=== PATIENT | male | born 1940 | race Caucasian/White ===

== ENCOUNTER 2018-04-19 06:58 | Day surgery (SDC) | payer MEDICARE, OTHER ==
[~2018-04-19 06:58] MED LIST: Bupivacaine 0.5%/EPINEPHrine 1:200,000 30 ML SDV ONE; Lactated Ringers 1,000 ML ONE; Midazolam 1 MG/ML 2 ML SDV ONE; Propofol 200 MG/20 ML SDV ONE; ceFAZolin 1 GM Vial ONE; fentaNYL 250 MCG/5 ML SDV ONE
[2018-04-19] MEDS ORDERED: Lactated Ringers 1,000 ML IV SCH (07:00)
[2018-04-19] MEDS ORDERED: Sodium Chloride 0.9% 5 ML Syringe FLUSH PRN (07:00)
[2018-04-19] MEDS ORDERED: Succinylcholine 200 MG/10 ML MDV IV ONE (07:54)
[2018-04-19] MEDS ORDERED: Rocuronium 50 MG/5 ML Vial IV ONE (07:54)
[2018-04-19] MEDS ORDERED: ePHEDrine 50 MG/ML SDV IV ONE (07:54)
[2018-04-19] MEDS ORDERED: Propofol 200 MG/20 ML SDV IV ONE (07:54)
[2018-04-19] MEDS ORDERED: Glycopyrrolate 0.2 MG/ML 5 ML MDV IV ONE (07:54)
[2018-04-19] MEDS ORDERED: Midazolam 1 MG/ML 2 ML SDV IV ONE (07:54)
[2018-04-19] MEDS ORDERED: ceFAZolin 1 GM Vial IV ONE (07:54)
[2018-04-19] MEDS ORDERED: fentaNYL 250 MCG/5 ML SDV IV ONE (07:54)
[2018-04-19] MEDS ORDERED: Neostigmine Methylsulfate 10 MG/10 ML MDV IV ONE (07:54)
[2018-04-19] MEDS ORDERED: Bupivacaine 0.5%/EPINEPHrine 1:200,000 30 ML SDV INFILT ONE ×2 (08:40)
[2018-04-19] MEDS ORDERED: ceFAZolin 1 GM Vial ONE (08:40)
[2018-04-19] MEDS ORDERED: Sodium Chloride 0.9% 20 ML SDV ONE (08:40)
[2018-04-19] MEDS ORDERED: Ondansetron 4 MG/2 ML SDV IVPUSH PRN (08:47)
[2018-04-19] MEDS ORDERED: Morphine 4 MG/ML Syringe IVPUSH PRN (08:47)
[2018-04-19] MEDS ORDERED: Morphine 2 MG/ML Syringe IVPUSH PRN (08:48)
[2018-04-19] MEDS ORDERED: fentaNYL 100 MCG/2 ML SDV IVPUSH PRN (08:48)
--- NOTE | 2018-04-19 09:04 | PCM.OPNOTE ---
- General Post-Op/Procedure Note Date of Surgery/Procedure: 04/19/18 Operative Procedure(s): Left inguinal herniorrhaphy and repair with Marlex mesh. Findings: Moderate left inguinal hernia mostly direct right ear was noted. No sac was observed. Pre Op Diagnosis: Moderate left inguinal hernia. Post-Op Diagnosis: As above. Condition: Good Free Text/Narrative:: INFORMED CONSENT: The patient is here today for elective left inguinal herniorrhaphy. The operative procedure, anesthesia and risks of both are completely explained to the patient. These include infection, pain, bleeding, recurrence, numbness and other unknown complications. The patient wished to proceed. The patient was kept in the supine position and the left inguinal area was thoroughly prepped and draped in the usual fashion. An incision was made over the left inguinal area, parallel to the inguinal ligament. The skin incision was deepened through the subcutaneous tissue, deep fascia and the external oblique was opened along the line of the skin incision. The cord structures were identified and kept out of harms way. We also identified the ilioinguinal nerve and the inguinal branch of the genitofemoral nerve. These two structures were kept out of harms way as well. We then dissected the medial portion of the cord and there was some inflamed fatty tissue but no distinct hernial sac. This tissue was removed. Palpation of the medial portion of the floor indicated a defect. A Marlex mesh was then cut down to size and placed to fortify the defect of the floor and the direct portion of the hernia. The mesh was attached to the conjoined tendon superiorly, Tobi's ligament medially and the reflected portion of the inguinal ligament inferiorly. The wound was irrigated, small bleeders were cauterized and the external oblique was closed over the cord structures using running 0 silk sutures. The subcutaneous tissue was closed with 0 Polysorb suture and the skin was closed using 4.0 Polysorb suture. A Sterile pressure dressing was applied, the patient tolerated the procedure well and there were no operative complications. Blood loss was negligible. Sponge, needle and instrument count was correct. The patient was transferred to the recovery room in excellent condition.
[2018-04-19 09:32] VITALS: BP 137/79
[2018-04-19] MEDS ORDERED: Lidocaine 2% Jelly 5 ML Tube ONE (15:19)
[2018-04-19] MEDS ORDERED: Lidocaine 2% Jelly 5 ML Tube MUCMEM ONE (15:20)
== END 2018-04-19 16:05 | disposition home or self-care (01) ==
LOC: KA.SDS 06:58
PROVIDERS: ATTEND Family Medicine
DX: K40.30 Unilateral inguinal hernia, with obstruction, without gangrene, not specified as recurrent (principal); I11.0 Hypertensive heart disease with heart failure; I50.9 Heart failure, unspecified; E78.2 Mixed hyperlipidemia; K21.9 Gastro-esophageal reflux disease without esophagitis; Z79.82 Long term (current) use of aspirin; Z79.899 Other long term (current) drug therapy; Z88.2 Allergy status to sulfonamides; Z88.4 Allergy status to anesthetic agent
CPT/HCPCS: 00830; 51702; 51798; C1781; J0330; J0690; J2250; J2405; J2704; J2710; J3010; J3490; J7120

== ENCOUNTER 2021-09-24 14:35 | Emergency (ER) | payer MEDICARE, OTHER ==
--- NOTE | 2021-09-24 15:07 | EDM.PDOC ---
ED HPI GENERAL MEDICAL PROBLEM - General Chief Complaint: General Stated Complaint: RT SIDE NUMBNESS/HIGH B/P Time Seen by Provider: 09/24/21 14:46 Source of Information: Reports: Patient, Provider ([facility] at [facility]), Significant Other History Limitations: Reports: No Limitations - History of Present Illness INITIAL COMMENTS - FREE TEXT/NARRATIVE: Patient presents from [facility] for evaluation of possible stroke. Patient says he had been out in the yard and at noon went in for lunch. He sat down to eat and his right arm wouldn't work right; he also couldn't chew normally. He felt off balance also. He says his arm didn't feel weak, just couldn't control it normally. His was with him and asked if she should call ambulance but he didn't want to at first. She says she didn't notice any facial droop or slurred speech. He says he never was confused or disoriented. At about 1300 he developed a headache, the other symptoms continued so they eventually went to the [facility]. He now says the only symptom remaining is the headache. Everything else is completely resolved. He denies any pain in chest, abdomen, arms, neck. In 2016 he had what was figured to be a TIA. At that time he did have facial droop and slurred speech. He spent a couple days at [facility]. He isn't taking anything [employer] for it. Headache Pain Score (Numeric/FACES): 5 - Related Data Allergies Allergy/AdvReac Type Severity Reaction Status Date / Time benzocaine [From Solarcaine] Allergy Rash Verified 09/24/21 14:45 Sulfa (Sulfonamide Allergy Swelling Verified 09/24/21 14:45 Antibiotics) triclosan [From Solarcaine] Allergy Rash Verified 09/24/21 14:45 Home Meds: Home Meds Calcium Carbonate/Vitamin D3 [Calcium 600 + Vit D 200] 1 tab PO DAILY 12/22/15 [History] Fluticasone Propionate [Flonase] 1 spray NASBOTH DAILY 12/22/15 [History] Fluticasone/Salmeterol [Advair Diskus 250-50] 1 puff INH BID 12/22/15 [History] Montelukast [Singulair] 10 mg PO BEDTIME 12/22/15 [History] Multivitamin [Multi-Vitamin Daily] 1 tab PO DAILY 12/22/15 [History] Nitroglycerin [Nitrostat] 0.4 mg SL ASDIRECTED PRN 12/22/15 [History] Omeprazole 20 mg PO DAILY 12/22/15 [History] polyethylene glycoL 3350 [Miralax] 17 gm PO DAILY #30 powd.pack 12/25/15 [Rx] Cholecalciferol (Vitamin D3) [Vitamin D3] 1,000 units PO DAILY 10/22/16 [History] Glucosam/Chond/Collagen/Hyalur [Glucosamine Chondroitin] 1 tab PO BID 10/22/16 [History] Rosuvastatin [Crestor] 10 mg PO DAILY 04/18/18 [History] Acetaminophen [Arthritis Pain Relief] 650 mg PO BID 09/24/21 [History] Albuterol [Ventolin HFA] 1 - 2 puff INH Q4H PRN 09/24/21 [History] Aspirin [Ecotrin EC] 81 mg PO DAILY 09/24/21 [History] Atenolol [Tenormin] 12.5 mg PO Q48H 09/24/21 [History] Diclofenac Sodium [Voltaren 1% Gel] 1 applic TOP BID PRN 09/24/21 [History] Finasteride 5 mg PO DAILY 09/24/21 [History] Losartan [Cozaar] 50 mg PO DAILY 09/24/21 [History] Tamsulosin [Flomax] 0.4 mg PO DAILY 09/24/21 [History] Past Medical History HEENT History: Reports: Impaired Vision Cardiovascular History: Reports: Aneurysm, Blood Clots/VTE/DVT, Bypass, Hypertension, CO Respiratory History: Reports: Pneumonia, Recurrent Other Respiratory History: seasonal allergies. sinus surgeries Gastrointestinal History: Reports: GERD Genitourinary History: Reports: Other (See Below) Other Genitourinary History: turp Musculoskeletal History: Reports: Arthritis Neurological History: Reports: TIA Psychiatric History: Reports: None Endocrine/Metabolic History: Reports: None Hematologic History: Reports: Anemia Immunologic History: Reports: None Oncologic (Cancer) History: Reports: None Dermatologic History: Reports: None - Infectious Disease History Infectious Disease History: Reports: Chicken Pox, Measles - Past Surgical History Head Surgeries/Procedures: Reports: None HEENT Surgical History: Reports: Naso-Sinus Surgery Cardiovascular Surgical History: Reports: Aneurysm, Coronary Artery Bypass, Vascular Surgery GI Surgical History: Reports: Colonoscopy Endocrine Surgical History: Reports: None Neurological Surgical History: Reports: None Musculoskeletal Surgical History: Reports: Arthroscopic Knee Oncologic Surgical History: Reports: None Dermatological Surgical History: Reports: None Social & Family History - Family History Family Medical History: No Pertinent Family History Cardiac: Reports: Hypertension Neurological: Reports: CVA - Caffeine Use Caffeine Use: Reports: Soda, Tea ED ROS GENERAL - Review of Systems Review Of Systems: See Below Constitutional: Denies: Fever, Chills, Malaise, Weakness HEENT: Denies: Ear Pain, Throat Pain, Vision Change Respiratory: Denies: Shortness of Breath, Cough Cardiovascular: Denies: Chest Pain, Lightheadedness, Syncope GI/Abdominal: Denies: Abdominal Pain, Diarrhea, Vomiting : Denies: Dysuria, Flank Pain Musculoskeletal: Denies: Neck Pain, Shoulder Pain, Arm Pain, Back Pain Skin: Denies: Cyanosis, Jaundice, Mottled, Pallor, Diaphoresis Neurological: Reports: Headache. Denies: Confusion, Dizziness, Numbness, Seizure, Syncope, Tingling, Tremors, Trouble Speaking, Difficulty Walking, Weakness Psychiatric: Denies: Agitation, Anxiety, Confusion ED EXAM, GENERAL - Physical Exam Exam: See Below Exam Limited By: No Limitations General Appearance: Alert, WD/WN, No Apparent Distress Eye Exam: Bilateral Eye: EOMI, Normal Inspection (full visual gleason bilat), PERRL Ears: Normal External Exam, Normal Canal, Hearing Grossly Normal, Normal TMs Nose: Normal Inspection, No Blood Throat/Mouth: Normal Inspection, Normal Lips, Normal Voice, No Airway Compromise Head: Atraumatic, Normocephalic Neck: Normal Inspection, Full Range of Motion Respiratory/Chest: No Respiratory Distress, Lungs Clear, Normal Breath Sounds, No Accessory Muscle Use Cardiovascular: Regular Rate, Rhythm, No Murmur GI/Abdominal: Soft, Non-Tender, No Organomegaly, No Distention Back Exam: Normal Inspection, Full Range of Motion. No: CVA Tenderness (L), CVA Tenderness (R) Extremities: Normal Inspection, Normal Range of Motion Neurological: Alert, Oriented, CN II-XII Intact, Normal Cognition, No Motor/Sensory Deficits, Other (normal Romberg) Psychiatric: Normal Affect, Normal Mood Skin Exam: Warm, Dry, Intact, Normal Color, No Rash Course - Vital Signs Last Recorded V/S: Last Vital Signs Temp 97.2 F 09/24/21 14:44 Pulse 67 09/24/21 16:06 Resp 20 09/24/21 15:16 BP 188/96 H 09/24/21 16:06 Pulse Ox 97 09/24/21 16:02 - Orders/Labs/Meds Orders: Active Orders 24 hr Category Date Time Status EKG 12 Lead [EK] Stat Ther 09/24/21 15:02 Ordered Labs: Laboratory Tests 09/24/21 09/24/21 Range/Units 15:20 15:20 WBC 6.24 (5.00-10.00) 10^3/uL RBC 4.59 (4.50-6.00) 10^6/uL Hgb 14.4 (13.0-17.0) g/dL Hct 42.0 (40.0-52.0) % MCV 91.5 D (82.0-92.0) fL MCH 31.4 H (27.0-31.0) pg MCHC 34.3 (32.0-36.0) g/dL RDW 12.9 (11.5-14.5) % Plt Count 173 (150-400) 10^3/uL MPV 8.6 (7.4-10.4) fL Immature Gran % (Auto) 0.3 (0.0-5.0) % Neut % (Auto) 63.2 (50.0-70.0) % Lymph % (Auto) 15.9 L (20.0-40.0) % Hayes % (Auto) 14.7 H (2.0-8.0) % Eos % (Auto) 5.3 H (1.0-3.0) % Baso % (Auto) 0.6 (0.0-1.0) % Neut # (Auto) 3.94 (2.50-7.00) 10^3/uL Lymph # (Auto) 0.99 L (1.00-4.00) 10^3/uL Hayes # (Auto) 0.92 H (0.10-0.80) 10^3/uL Eos # (Auto) 0.33 H (0.10-0.30) 10^3/uL Baso # (Auto) 0.04 (0.00-0.10) 10^3/uL Immature Gran # (Auto) 0.02 (0.00-0.50) 10^3/uL Sodium 133 L (136-145) mmol/L Potassium 4.4 (3.5-5.1) mmol/L Chloride 97 L (98-107) mmol/L Carbon Dioxide 27.2 (21.0-32.0) mmol/L Anion Gap 13.2 (5-15) mmol/L BUN 22 H (7-18) mg/dL Creatinine 1.05 (0.51-1.17) mg/dL Est Cr Clr Drug Dosing 62.61 mL/min Estimated GFR (MDRD) > 60 mL/min Glucose 102 (70-140) mg/dL Calcium 9.0 (8.7-10.3) mg/dL Total Bilirubin 0.3 (0.2-1.0) mg/dL AST 21 (15-37) U/L ALT 28 (14-63) U/L Alkaline Phosphatase 45 L (46-116) U/L Total Protein 6.5 (6.4-8.2) g/dL Albumin 3.27 L (3.40-5.00) g/dL Meds: Medications Discontinued Medications Generic Name Dose Route Start Last Admin Trade Name Korina PRN Reason Stop Dose Admin Acetaminophen 1,000 mg 09/24/21 15:47 09/24/21 15:51 Acetaminophen 500 Mg Tab PO 09/24/21 15:48 1,000 mg ONETIME ONE Administration Ketorolac Tromethamine 30 mg 09/24/21 15:46 09/24/21 15:52 Ketorolac 30 Mg/Ml Sdv IM 09/24/21 15:47 30 mg ONETIME ONE Administration Metoprolol Tartrate 50 mg 09/24/21 16:03 09/24/21 16:06 Metoprolol Tartrate 50 Mg Tab PO 09/24/21 16:04 50 mg ONETIME ONE Administration - Re-Assessments/Exams Free Text/Narrative Re-Assessment/Exam: 09/24/21 15:[address] shows no acute intracranial findings. Patient rates headache at 5/10 and would like something for it. He can take NSAIDS he says. He feels fine other than the headache. Giving Toradol and Tylenol now. 11/04/21 16:03 CMP okay. BP has fluctuated a bit but still running higher than his normal. He did take his Atenolol and Losartan this morning. Will give a dose of Metoprolol 50 mg now. Discussed findings and recommendations; including that this was possibly another TIA. He continues to feel well. He would like to go home rather than stay for observation. I feel that is reasonable; he is scheduled to see his staff registered nurse tomorrow in [place] so will see his PCP on Tuesday. If any worsening or problems will follow up sooner in clinic or ER. 09/24/21 16:21 Patient discharged to home in stable condition. Departure - Departure Time of Disposition: 16:20 Disposition: Home, Self-Care 01 Condition: Good Clinical Impression: TIA (transient ischemic attack), Headache above the eye region - Discharge Information Instructions: Transient Ischemic Attack, [id number] Forms: ED Department Discharge Additional Instructions: Drink 8 cups of water daily. Continue your regular medications as directed. Follow up with your PCP on Tuesday for recheck of this and your blood pressure. If any worsening, go to Clinic or ER as needed. Sepsis Event Note (ED) - Evaluation Sepsis Screening Result: No Definite Risk - Focused Exam Vital Signs: Vital Signs Temp Pulse Pulse Resp BP BP Pulse Ox 09/24/21 16:06 67 188/96 H 09/24/21 16:02 67 188/96 H 97 09/24/21 15:16 61 20 169/83 H 97 09/24/21 15:10 60 20 180/91 H 98 09/24/21 14:45 61 161/85 H 09/24/21 14:44 97.2 F 61 20 184/91 H 97 - My Orders Last 24 Hours: My Active Orders 09/24/21 15:02 EKG 12 Lead [EK] Stat - Assessment/Plan Last 24 Hours: My Active Orders 09/24/21 15:02 EKG 12 Lead [EK] Stat
--- NOTE | 2021-09-24 15:28 | CT ---
[id number] CT/CT Head Stroke Protocol EXAM: CT Head Stroke Protocol CLINICAL DATA: POSSIBLE TIA. HEADACHE, RIGHT ARM WEAKNESS, CANNOT COMPARISON STUDY: None FINDINGS: No intracranial hemorrhage, extra-axial fluid collection, mass, or acute ischemia. Generalized parenchymal atrophy with scattered areas of nonspecific white matter disease, commonly seen as sequela of chronic microvascular ischemia. Soft tissues are unremarkable. Postsurgical changes of the sinuses. Findings consistent with moderate sinusitis. IMPRESSION: No acute intracranial findings. Mikel Howe DO 09/24/21 1526 Thank you for allowing us to participate in the care of your patient.
[2021-09-24 15:44] LABS: ANION GAP 13.2 mmol/L (5-15); CHLORIDE,CL 97 mmol/L (98-107); SODIUM,NA 133 mmol/L (136-145)
[2021-09-24] MEDS ORDERED: Ketorolac 30 MG/ML SDV IM ONE (15:46)
[2021-09-24] MEDS ORDERED: Acetaminophen 500 MG Tab PO ONE (15:47)
[2021-09-24 16:03] VITALS: BP 188/96; PULSE 67
[2021-09-24] MEDS ORDERED: Metoprolol Tartrate 50 MG Tab PO ONE (16:03)
== END 2021-09-24 16:25 | disposition home or self-care (01) ==
LOC: KA.ED 14:35
DX: G45.9 Transient cerebral ischemic attack, unspecified (principal); I10 Essential (primary) hypertension; I25.2 Old myocardial infarction; K21.9 Gastro-esophageal reflux disease without esophagitis; Z79.899 Other long term (current) drug therapy; Z95.1 Presence of aortocoronary bypass graft; Z88.2 Allergy status to sulfonamides; Z88.8 Allergy status to other drugs, medicaments and biological substances; Z79.82 Long term (current) use of aspirin
CPT/HCPCS: 36415; 70450; 80053; 85025; 93005; 93010; 96372; 99284; 99285-25; A9270-GY; J1885

== ENCOUNTER 2021-09-27 15:07 | Observation (INO) | payer MEDICARE, OTHER ==
[2021-09-27 15:41] LABS: ANION GAP 14.5 mmol/L (5-15); CHLORIDE,CL 96 mmol/L (98-107); SODIUM,NA 133 mmol/L (136-145)
--- NOTE | 2021-09-27 15:50 | CT ---
[id number] CT/CT Head Stroke Protocol EXAM: CT Head Stroke Protocol CLINICAL DATA: TIA, NEURO COMPLAINT, WORD FINDING. COMPARISON STUDY: None FINDINGS: No intracranial hemorrhage, extra-axial fluid collection, mass, or acute ischemia. Generalized parenchymal atrophy with scattered areas of nonspecific white matter disease, commonly seen as sequela of chronic microvascular ischemia. Soft tissues are unremarkable. Postsurgical changes of the paranasal sinuses. The mastoid air cells are well aerated and clear. IMPRESSION: No acute intracranial findings. Mikel Howe DO 09/27/21 1549 Thank you for allowing us to participate in the care of your patient.
--- NOTE | 2021-09-27 16:42 | EDM.PDOC ---
ED HPI GENERAL MEDICAL PROBLEM - General Chief Complaint: Neurological Problem Stated Complaint: STROKE ALERT Time Seen by Provider: 09/27/21 15:09 Source of Information: Reports: Patient, EMS, Family () History Limitations: Reports: Altered Mental Status - History of Present Illness INITIAL COMMENTS - FREE TEXT/NARRATIVE: 81-year-old male presents to emergency room for acute stroke code. Patient onset of symptoms occurred about an hour prior to his arrival. He was having difficulty with speech and some extremity weakness noted by family. EMS seen evaluated patient and noticed some mild weakness on his right side.. He was having some difficulty with the word finding and speech. Upon arrival his symptoms had been transient and seemed to have improved. He was still having a little bit of difficulty answering questions appropriately but was alert and oriented x3 in no acute distress. His motor strength had resolved. There is neuro acute neurologic findings other than difficulty with word speech. Patient was stable condition was sent to CT scan of his head. Onset: Today Onset Date: 09/27/21 Onset Time: 14:00 Duration: Minutes:, Resolved Prior to Arrival, Other Quality: Reports: Ache (headache) Severity: Mild Improves with: Reports: Rest Worsens with: Reports: None Associated Symptoms: Reports: Confusion, Other (Word finding) Headache Pain Score (Numeric/FACES): 5 - Related Data Allergies Allergy/AdvReac Type Severity Reaction Status Date / Time benzocaine [From Solarcaine] Allergy Rash Verified 09/27/21 15:21 Sulfa (Sulfonamide Allergy Swelling Verified 09/27/21 15:21 Antibiotics) triclosan [From Solarcaine] Allergy Rash Verified 09/27/21 15:21 Home Meds: Home Meds Calcium Carbonate/Vitamin D3 [Calcium 600 + Vit D 200] 1 tab PO BID 12/22/15 [History] Fluticasone Propionate [Flonase] 1 spray NASBOTH BID 12/22/15 [History] Fluticasone/Salmeterol [Advair Diskus 250-50] 1 puff INH BID 12/22/15 [History] Montelukast [Singulair] 10 mg PO BEDTIME 12/22/15 [History] Multivitamin [Multi-Vitamin Daily] 1 tab PO DAILY 12/22/15 [History] Nitroglycerin [Nitrostat] 0.4 mg SL ASDIRECTED PRN 12/22/15 [History] Omeprazole 40 mg PO DAILY 12/22/15 [History] polyethylene glycoL 3350 [Miralax] 17 gm PO DAILY #30 powd.pack 12/25/15 [Rx] Cholecalciferol (Vitamin D3) [Vitamin D3] 2,000 units PO DAILY 10/22/16 [History] Glucosam/Chond/Collagen/Hyalur [Glucosamine Chondroitin] 1 tab PO BID 10/22/16 [History] Rosuvastatin [Crestor] 20 mg PO DAILY 04/18/18 [History] Acetaminophen [Arthritis Pain Relief] 650 mg PO BID 09/24/21 [History] Albuterol [Ventolin HFA] 1 - 2 puff INH Q4H PRN 09/24/21 [History] Aspirin [Ecotrin EC] 81 mg PO DAILY 09/24/21 [History] Atenolol [Tenormin] 12.5 mg PO Q48H 09/24/21 [History] Diclofenac Sodium [Voltaren 1% Gel] 1 applic TOP BID PRN 09/24/21 [History] Finasteride 5 mg PO DAILY 09/24/21 [History] Losartan [Cozaar] 50 mg PO DAILY 09/24/21 [History] Tamsulosin [Flomax] 0.4 mg PO DAILY 09/24/21 [History] Past Medical History HEENT History: Reports: Impaired Vision Cardiovascular History: Reports: Aneurysm, Blood Clots/VTE/DVT, Bypass, Hypertension, [place] Respiratory History: Reports: Pneumonia, Recurrent Other Respiratory History: seasonal allergies. sinus surgeries Gastrointestinal History: Reports: GERD Genitourinary History: Reports: Other (See Below) Other Genitourinary History: turp Musculoskeletal History: Reports: Arthritis Neurological History: Reports: TIA Psychiatric History: Reports: None Endocrine/Metabolic History: Reports: None Hematologic History: Reports: Anemia Immunologic History: Reports: None Oncologic (Cancer) History: Reports: None Dermatologic History: Reports: None - Infectious Disease History Infectious Disease History: Reports: Chicken Pox, Measles - Past Surgical History Head Surgeries/Procedures: Reports: None HEENT Surgical History: Reports: Naso-Sinus Surgery Cardiovascular Surgical History: Reports: Aneurysm, Coronary Artery Bypass, Vascular Surgery Respiratory Surgical History: Reports: Other (See Below) Other Respiratory Surgeries/Procedures: sinus GI Surgical History: Reports: Colonoscopy Endocrine Surgical History: Reports: None Neurological Surgical History: Reports: None Musculoskeletal Surgical History: Reports: Arthroscopic Knee Other Musculoskeletal Surgeries/Procedures:: arthritis of hands Oncologic Surgical History: Reports: None Dermatological Surgical History: Reports: None Social & Family History - Family History Family Medical History: No Pertinent Family History Cardiac: Reports: Hypertension Neurological: Reports: CVA - Tobacco Use Tobacco Use Status *Q: Never Tobacco User - Caffeine Use Caffeine Use: Reports: Tea - Recreational Drug Use Recreational Drug Use: No ED ROS GENERAL - Review of Systems Review Of Systems: See Below Constitutional: Reports: No Symptoms HEENT: Reports: No Symptoms Respiratory: Reports: No Symptoms Cardiovascular: Reports: Blood Pressure Problem. Denies: Chest Pain, Dyspnea on Exertion, Lightheadedness, Syncope Endocrine: Reports: No Symptoms GI/Abdominal: Reports: No Symptoms : Reports: No Symptoms Musculoskeletal: Reports: No Symptoms Skin: Reports: No Symptoms Neurological: Reports: Confusion, Headache, Trouble Speaking (Difficulty with word finding). Denies: Numbness, Paresthesia, Pre-Existing Deficit, Difficulty Walking, Weakness, Change in Speech Psychiatric: Reports: No Symptoms Hematologic/Lymphatic: Reports: No Symptoms Immunologic: Reports: No Symptoms ED EXAM, NEURO - Physical Exam Exam: See Below Exam Limited By: No Limitations General Appearance: Alert, WD/WN, No Apparent Distress Eye Exam: Bilateral Eye: EOMI, PERRL Ears: Normal External Exam, Hearing Grossly Normal Nose: Normal Inspection Throat/Mouth: Normal Inspection, Normal Lips, Normal Voice, No Airway Compromise, Other (No evidence of droopy face) Head Exam: Atraumatic, Normocephalic Neck: Normal Inspection, Supple, Non-Tender, Full Range of Motion. No: Carotid Bruit Respiratory/Chest: No Respiratory Distress, Lungs Clear, Normal Breath Sounds, No Accessory Muscle Use, Chest Non-Tender Cardiovascular: Normal Peripheral Pulses, Regular Rate, Rhythm, No JVD, No Murmur, Other (Healed incision over his him consistent with prior open heart surgery) GI/Abdominal: Normal Bowel Sounds, Soft, Non-Tender Neurological: Alert, Normal Mood/Affect, CN II-XII Intact, Normal Plantar Flexion, No Motor/Sensory Deficits, Oriented x 3, Other (Clonus, Denise's get if) Back Exam: Normal Inspection Extremities: Normal Inspection, Normal Range of Motion, No Pedal Edema, Normal Capillary Refill Psychiatric: Normal Affect, Normal Mood Skin Exam: Warm, Dry, Intact, Normal Color, No Rash Course - Vital Signs Last Recorded V/S: Last Vital Signs Temp 97.6 F 09/27/21 15:22 Pulse 76 09/27/21 15:22 Resp 20 09/27/21 15:22 BP 199/116 H 09/27/21 15:22 Pulse Ox 95 09/27/21 15:22 - Orders/Labs/Meds Orders: Active Orders 24 hr Category Date Time Status EKG 12 Lead [EK] Stat Ther 09/27/21 15:20 Ordered Labs: Laboratory Tests 09/27/21 09/27/21 Range/Units 13:03 13:03 WBC 6.32 (5.00-10.00) 10^3/uL RBC 4.64 (4.50-6.00) 10^6/uL Hgb 14.7 (13.0-17.0) g/dL Hct 41.6 (40.0-52.0) % MCV 89.7 (82.0-92.0) fL MCH 31.7 H (27.0-31.0) pg MCHC 35.3 (32.0-36.0) g/dL RDW 12.7 (11.5-14.5) % Plt Count 168 (150-400) 10^3/uL MPV 8.8 (7.4-10.4) fL Immature Gran % (Auto) 0.3 (0.0-5.0) % Neut % (Auto) 47.7 L (50.0-70.0) % Lymph % (Auto) 28.6 (20.0-40.0) % [place] % (Auto) 16.1 H (2.0-8.0) % Eos % (Auto) 6.5 H (1.0-3.0) % Baso % (Auto) 0.8 (0.0-1.0) % Neut # (Auto) 3.01 (2.50-7.00) 10^3/uL Lymph # (Auto) 1.81 (1.00-4.00) 10^3/uL [place] # (Auto) 1.02 H (0.10-0.80) 10^3/uL Eos # (Auto) 0.41 H (0.10-0.30) 10^3/uL Baso # (Auto) 0.05 (0.00-0.10) 10^3/uL Immature Gran # (Auto) 0.02 (0.00-0.50) 10^3/uL Sodium 133 L (136-145) mmol/L Potassium 4.2 (3.5-5.1) mmol/L Chloride 96 L (98-107) mmol/L Carbon Dioxide 26.7 (21.0-32.0) mmol/L Anion Gap 14.5 (5-15) mmol/L BUN 18 (7-18) mg/dL Creatinine 1.17 (0.51-1.17) mg/dL Est Cr Clr Drug Dosing 56.19 mL/min Estimated GFR (MDRD) > 60 mL/min Glucose 125 (70-140) mg/dL Calcium 9.1 (8.7-10.3) mg/dL Troponin I High Sens 11.100 (0-76.000) pg/mL - Radiology Interpretation Free Text/Narrative:: CT head stroke protocol Clinical data: TIA, neuro complaint, word finding. Findings: No intracranial hemorrhage, extra-axial fluid collection, mass, or acute ischemia. Generalized paronychial atrophy with scattered areas of nonspecific white matter disease, commonly seen as a sequela of chronic microvascular ischemia. Tissues are unremarkable. Postsurgical changes of the parent nasal sinuses. The mastoid air cells are well aerated and clear. Impression: No acute intracranial findings - Re-Assessments/Exams Free Text/Narrative Re-Assessment/Exam: 09/27/21 16:49 Patient's neurological symptoms seem to have resolved at the time of arrival. He was still having some mild difficulty on admission with word finding and answering sentences in full. This since has improved during his time in the ER. Discussed with the patient that he was seen in the emergency room on and once again today with similar neurologic symptoms suggesting of a TIA. Our concern is that this is leading up to a stroke. With the second episode of this in the emergency room I discussed keeping him overnight for observation. He is going to need further work-up upon discharge likely with a brain MRI. Departure - Departure Time of Disposition: 16:51 Disposition: Refer to Observation Condition: Good Clinical Impression: Neurological deficit, transient, TIA (transient ischemic attack) - Discharge Information Sepsis Event Note (ED) - Evaluation Sepsis Screening Result: No Definite Risk - Focused Exam Vital Signs: Vital Signs Temp Pulse Resp BP Pulse Ox 09/27/21 15:22 97.6 F 76 20 199/116 H 95 - My Orders Last 24 Hours: My Active Orders 09/27/21 15:20 EKG 12 Lead [EK] Stat - Assessment/Plan Last 24 Hours: My Active Orders 09/27/21 15:20 EKG 12 Lead [EK] Stat Assessment:: Neurological complaints, logic deficit transient Probable TIAs, recurrent Plan: Patient's neurological symptoms seem to have resolved at the time of arrival. He was still having some mild difficulty on admission with word finding and answering sentences in full. This since has improved during his time in the ER. Discussed with the patient that he was seen in the emergency room on and once again today with similar neurologic symptoms suggesting of a TIA. Our concern is that this is leading up to a stroke. With the second episode of this in the emergency room I discussed keeping him overnight for observation. He is going to need further work-up upon discharge likely with a brain MRI.
--- NOTE | 2021-09-27 18:26 | PCM.HP.2 ---
H&P History of Present Illness - General Date of Service: 09/27/21 Admit Problem/Dx: Admission Diagnosis/Problem Admission Diagnosis/Problem TIA, Transient ischemic attack Headache Pain Score (Numeric/FACES): 5 - Related Data Allergies/Adverse Reactions: Allergies Allergy/AdvReac Type Severity Reaction Status Date / Time benzocaine [From Solarcaine] Allergy Rash Verified 09/27/21 15:21 Sulfa (Sulfonamide Allergy Swelling Verified 09/27/21 15:21 Antibiotics) triclosan [From Solarcaine] Allergy Rash Verified 09/27/21 15:21 Home Medications: Home Meds Calcium Carbonate/Vitamin D3 [Calcium 600 + Vit D 200] 1 tab PO BID 12/22/15 [Hi story] Fluticasone Propionate [Flonase] 1 spray NASBOTH BID 12/22/15 [History] Fluticasone/Salmeterol [Advair Diskus 250-50] 1 puff INH BID 12/22/15 [History] Montelukast [Singulair] 10 mg PO BEDTIME 12/22/15 [History] Multivitamin [Multi-Vitamin Daily] 1 tab PO DAILY 12/22/15 [History] Nitroglycerin [Nitrostat] 0.4 mg SL ASDIRECTED PRN 12/22/15 [History] Omeprazole 40 mg PO DAILY 12/22/15 [History] polyethylene glycoL 3350 [Miralax] 17 gm PO DAILY #30 powd.pack 12/25/15 [Rx] Cholecalciferol (Vitamin D3) [Vitamin D3] 2,000 units PO DAILY 10/22/16 [History] Glucosam/Chond/Collagen/Hyalur [Glucosamine Chondroitin] 1 tab PO BID 10/22/16 [History] Rosuvastatin [Crestor] 20 mg PO DAILY 04/18/18 [History] Acetaminophen [Arthritis Pain Relief] 650 mg PO BID 09/24/21 [History] Albuterol [Ventolin HFA] 1 - 2 puff INH Q4H PRN 09/24/21 [History] Aspirin [Ecotrin EC] 81 mg PO DAILY 09/24/21 [History] Atenolol [Tenormin] 12.5 mg PO Q48H 09/24/21 [History] Diclofenac Sodium [Voltaren 1% Gel] 1 applic TOP BID PRN 09/24/21 [History] Finasteride 5 mg PO DAILY 09/24/21 [History] Losartan [Cozaar] 50 mg PO DAILY 09/24/21 [History] Tamsulosin [Flomax] 0.4 mg PO DAILY 09/24/21 [History] Prednisolone Acetate/Pf [Prednisolone Acet 1% Eye Drop] 1 drop EYERT BID 09/27/21 [History] Past Medical History HEENT History: Reports: Impaired Vision Cardiovascular History: Reports: Aneurysm, Blood Clots/VTE/DVT, Bypass, Hypertension, [place] Respiratory History: Reports: Pneumonia, Recurrent Other Respiratory History: seasonal allergies. sinus surgeries Gastrointestinal History: Reports: GERD Genitourinary History: Reports: Other (See Below) Other Genitourinary History: turp Musculoskeletal History: Reports: Arthritis Neurological History: Reports: TIA Psychiatric History: Reports: None Endocrine/Metabolic History: Reports: None Hematologic History: Reports: Anemia Immunologic History: Reports: None Oncologic (Cancer) History: Reports: None Dermatologic History: Reports: None - Infectious Disease History Infectious Disease History: Reports: Chicken Pox, Measles - Past Surgical History Head Surgeries/Procedures: Reports: None HEENT Surgical History: Reports: Naso-Sinus Surgery Cardiovascular Surgical History: Reports: Aneurysm, Coronary Artery Bypass, Vascular Surgery Respiratory Surgical History: Reports: Other (See Below) Other Respiratory Surgeries/Procedures: sinus GI Surgical History: Reports: Colonoscopy Endocrine Surgical History: Reports: None Neurological Surgical History: Reports: None Musculoskeletal Surgical History: Reports: Arthroscopic Knee Other Musculoskeletal Surgeries/Procedures:: arthritis of hands Oncologic Surgical History: Reports: None Dermatological Surgical History: Reports: None Social & Family History - Family History Family Medical History: No Pertinent Family History Cardiac: Reports: Hypertension Neurological: Reports: CVA - Tobacco Use Tobacco Use Status *Q: Never Tobacco User - Caffeine Use Caffeine Use: Reports: Tea - Recreational Drug Use Recreational Drug Use: No H&P Review of Systems - Review of Systems: Review Of Systems: See Below General: Reports: No Symptoms HEENT: Reports: Headaches (now resolved, headache with onset of neuro symptoms) Pulmonary: Reports: Cough Cardiovascular: Reports: No Symptoms. Denies: Lightheadedness, Syncope Gastrointestinal: Reports: No Symptoms Genitourinary: Reports: No Symptoms Musculoskeletal: Reports: No Symptoms Skin: Reports: No Symptoms Psychiatric: Reports: No Symptoms Neurological: Reports: Weakness (Now resolved), Change in Speech (Now resolved) Hematologic/Lymphatic: Reports: No Symptoms Immunologic: Reports: No Symptoms Exam - Exam Exam: See Below - Vital Signs Vital Signs: Last Vital Signs Temp 97.6 F 09/27/21 16:16 Pulse 59 L 09/27/21 16:30 Resp 16 09/27/21 16:30 BP 169/79 H 09/27/21 16:30 Pulse Ox 94 L 09/27/21 16:30 Weight: 185 lb - Exam General: Alert, Oriented, Cooperative. No: Mild Distress HEENT: Conjunctiva Clear, Mucosa Moist & [place] Neck: Supple, Trachea Midline. No: Carotid Bruit Lungs: Decreased Breath Sounds. No: Crackles, Rales, Rhonchi, Wheezing Cardiovascular: Regular Rate, Regular Rhythm. No: Systolic Murmur GI/Abdominal Exam: Normal Bowel Sounds, Soft, Non-Tender, No Distention (Male) Exam: Deferred Rectal (Males) Exam: Deferred Back Exam: Normal Inspection, Full Range of Motion Extremities: Normal Inspection, Normal Range of Motion, Non-Tender, No Pedal Edema, Normal Capillary Refill Peripheral Pulses: 2+: Dorsalis Pedis (L), Dorsalis Pedis (R) Skin: Warm, Dry, Intact Neurological: Cranial Nerves Intact, Normal Speech, Normal Tone. No: Focal Deficit Neuro Extensive - Mental Status: Alert, Oriented x3, Normal Mood/Affect, Normal Cognition, Memory Intact Neuro Extensive - Motor, Sensory, Reflexes: CN II-XII Intact. No: Tongue Deviation (L), Dysarthria, Receptive Aphasia, Pronator Drift (R), Abnormal Finger to Nose, Abnormal Heel to [place] Psychiatric: Alert, Normal Affect, Normal Mood - Patient Data Lab Results Last 24 hrs: Laboratory Results - last 24 hr 09/27/21 09/27/21 09/27/21 Range/Units 13:03 13:03 16:30 WBC 6.32 (5.00-10.00) 10^3/uL RBC 4.64 (4.50-6.00) 10^6/uL Hgb 14.7 (13.0-17.0) g/dL Hct 41.6 (40.0-52.0) % MCV 89.7 (82.0-92.0) fL MCH 31.7 H (27.0-31.0) pg MCHC 35.3 (32.0-36.0) g/dL RDW 12.7 (11.5-14.5) % Plt Count 168 (150-400) 10^3/uL MPV 8.8 (7.4-10.4) fL Immature Gran % (Auto) 0.3 (0.0-5.0) % Neut % (Auto) 47.7 L (50.0-70.0) % Lymph % (Auto) 28.6 (20.0-40.0) % [place] % (Auto) 16.1 H (2.0-8.0) % Eos % (Auto) 6.5 H (1.0-3.0) % Baso % (Auto) 0.8 (0.0-1.0) % Neut # (Auto) 3.01 (2.50-7.00) 10^3/uL Lymph # (Auto) 1.81 (1.00-4.00) 10^3/uL [place] # (Auto) 1.02 H (0.10-0.80) 10^3/uL Eos # (Auto) 0.41 H (0.10-0.30) 10^3/uL Baso # (Auto) 0.05 (0.00-0.10) 10^3/uL Immature Gran # (Auto) 0.02 (0.00-0.50) 10^3/uL Sodium 133 L (136-145) mmol/L Potassium 4.2 (3.5-5.1) mmol/L Chloride 96 L (98-107) mmol/L Carbon Dioxide 26.7 (21.0-32.0) mmol/L Anion Gap 14.5 (5-15) mmol/L BUN 18 (7-18) mg/dL Creatinine 1.17 (0.51-1.17) mg/dL Est Cr Clr Drug Dosing 56.19 mL/min Estimated GFR (MDRD) > 60 mL/min Glucose 125 (70-140) mg/dL Calcium 9.1 (8.7-10.3) mg/dL Troponin I High Sens 11.100 (0-76.000) pg/mL SARS CoV-2 RNA Rapid SANGITA Negative (NEGATIVE) Result Diagrams: 09/27/21 13:03 09/27/21 13:03 Sepsis Event Note - Evaluation Sepsis Screening Result: No Definite Risk - Focused Exam Vital Signs: Vital Signs Temp Pulse Resp BP Pulse Ox 09/27/21 16:30 59 L 16 169/79 H 94 L 09/27/21 16:16 97.6 F 59 L 16 158/80 H 96 09/27/21 16:00 61 13 147/73 H 96 09/27/21 15:30 63 20 162/74 H 95 09/27/21 15:22 97.6 F 76 20 199/116 H 95 Problem List Initiated/Reviewed/Updated: Yes Orders Last 24hrs: Active Orders 24 hr Category Date Time Status Patient Status [ADT] Routine ADT 09/27/21 16:16 Active Vital Signs [RC] 0300,0700,1100,1500,1900,2300 Care 09/27/21 16:16 Active EKG 12 Lead [EK] Stat Ther 09/27/21 15:20 Ordered Assessment/Plan Comment:: HPI summary: Shakeel is a 81-year-old male patient who presented to the ER by EMS this afternoon for stroke symptoms. Symptom onset occurred about an hour prior to his arrival. He was having difficulty with speech and right extremity weakness reported per family. EMS also noted some mild right sided weakness. He also was exhibiting difficulty with word retrieval and speech. Upon arrival to the ER this afternoon his symptoms had improved. He continued to have some difficulty answering questions however he was alert and oriented x3 and no distress. His motor strength had normalized. Speech symptoms also improved during his ER visit. Of note patient was evaluated by Eugenia Zuniga APRN in the [place] clinic on September 25 and sent to the ER for complaints of dizziness, difficulty finding words, slurred speech, difficulty chewing, and right arm weakness. Patient was evaluated in the [facility] ER on Tuesday with a normal neurological exam no residual deficits normal NIH stroke scale and negative head CT at that time. Patient was discharged home on Tuesday from the ER with a follow-up appointment scheduled with his primary care provider Jennifer Tim for tomorrow. Patient to be admitted on observation status given 2 ER visits for neurological symptoms over the weekend. Head CT has been negative x2, prior brain MRI indicates chronic small vessel disease. Patient does have history of prior TIA. ED course: Initial blood pressure elevated in ER. Labs overall unremarkable in ER. WBC 6.32, H GB 14.7, platelets 168. Patient has known history of mild hyponatremia sodium today is 133, K4.2, normal renal indices with BUN 18 and cr eatinine 1.17. Troponin negative. Head CT negative for acute intracranial findings. Radiology does note nonspecific white matter disease commonly seen as sequela of chronic microvascular ischemia which patient had previously noted on brain MRI. Hospital course: 09/27/21: Patient states he had a severe headache with onset of weakness and speech difficutly earlier today. Denies dizziness with this episode. Patient reports feeling better upon admission. No weakness or speech difficulty. Patient A/O x 3, equal strength bilaterally, cranial nerves intact, no focal neuro deficits. No carotid bruit or murmur noted. Lungs diminished, clear. Repeat labs in am Hospitalization problems and plan: # TIA - Head CT negative for acute intracranial process; transient neuro symptoms grossly resolved prior to arrival in ER - Neuro checks - Cardiac monitoring to rule out cardiac arrhythmia - Allow for permissive HTN of BP up to 160s/90s Chronic, stable conditions: # CAD - takes atenolol 12.5mg atenolol on even days, ASA 81mg PO daily, nitro PRN # HFpEF - Echo 01/27/21 - EF 60%, grade 2 diastolic dysfunction; moderate tricuspid/pulmonic regurgitation; mild to moderate mitral regurgitation; mild aortic regurgitation. # HTN - takes losartan 25mg PO daily (hold to allow for permissive HTN due to TIA) # PVD # s/p CABG # Transient Cerebral Ischemia - Hx of TIA # Chronic small vessel disease per previous brain MRI in 2016 # Asthma - takes singulair 10mg PO daily; albuterol PRN # Pulmonary fibrosis # Emphysema - takes advair 1 puff BID # HLD - takes crestor 20mg PO daily; last lipid panel 11/03/20 - LDL 86 # GERD - takes prilosec 40mg PO daily # BPH with weak urinary stream - takes flomax 0.4mg PO daily, finasteride 5mg PO daily # Osteoporosis - on prolia every 6 months, calcium/vitamin D BID # Osteoarthritis - takes tylenol arthritis 1300mg PO BID # Chronic hyponatremia # s/p AAA repair # Bilateral carotid stenosis - last US 2016 with < 50% stenosis bilaterally # Chronic maxillary sinusitis # Nasal polyps - takes flonase daily Hospitalization details: # FEN: oral fluids, electrolytes WNL, heart healthy diet # PPX: continue ASA 81mg, pantoprazole 40mg PO (takes prilosec at home) # Code status: DNR/DNI - POLST updated # Emergency contact: , Puja [phone] # Disposition: Patient admitted to observation status for neurological monitoring given neuro symptoms on Tuesday and again today. - Plan for outpatient Brain MRI and repeat carotid ultrasound (last completed in 2016)
[2021-09-27] MEDS ORDERED: Albuterol 8 GM Inhaler INH PRN (18:43)
[2021-09-27] MEDS ORDERED: Diclofenac Sodium 1% Gel 100 GM Tube TOP PRN ×2 (18:43→19:37)
[2021-09-27] MEDS: Acetaminophen 650 MG Tab.ER PO SCH (20:09)
[2021-09-27] MEDS: prednisoLONE Acetate 1% Ophth Susp 5 ML Bottle EYERT SCH (20:09)
[2021-09-27] MEDS: Formoterol/Mometasone 200-5 MCG 8.8 GM Inhaler IH SCH (20:10)
[2021-09-27] MEDS ORDERED: Montelukast 10 MG Tab PO SCH (21:00)
[2021-09-27] MEDS ORDERED: Pantoprazole 20 MG Tab, Delayed Release PO SCH (21:00)
[2021-09-28] MEDS: Acetaminophen 650 MG Tab.ER PO SCH (08:37)
[2021-09-28 08:38] LABS: ANION GAP 11.4 mmol/L (5-15); CHLORIDE,CL 100 mmol/L (98-107); SODIUM,NA 134 mmol/L (136-145)
[2021-09-28] MEDS: prednisoLONE Acetate 1% Ophth Susp 5 ML Bottle EYERT SCH (08:42)
[2021-09-28] MEDS ORDERED: Atenolol 25 MG Tab PO SCH (09:00)
[2021-09-28] MEDS ORDERED: Tamsulosin 0.4 MG Cap.ER PO SCH (09:00)
[2021-09-28] MEDS ORDERED: Aspirin 81 MG Tab.EC PO SCH (09:00)
[2021-09-28] MEDS ORDERED: Pantoprazole 40 MG Tab.CR PO SCH (09:00)
[2021-09-28] MEDS ORDERED: Finasteride 5 MG Tab PO SCH (09:00)
[2021-09-28] MEDS ORDERED: Fluticasone Propionate Nasal Spray 16 GM Bottle NASBOTH SCH (09:00)
[2021-09-28] MEDS ORDERED: ADVAIR PO SCH (10:00)
[2021-09-28] MEDS: Formoterol/Mometasone 200-5 MCG 8.8 GM Inhaler IH SCH (10:22)
--- NOTE | 2021-09-28 11:58 | PCM.DCSUM1 ---
Discharge Summary - Hospital Course Free Text/Narrative:: Date of admission: 09/27/21 Date of discharge: 09/28/21 Admission diagnoses: # TIA - Head CT negative for acute intracranial process; transient neuro symptoms grossly resolved prior to arrival in ER - Neuro checks - Cardiac monitoring to rule out cardiac arrhythmia - Allow for permissive HTN of BP up to 160s/90s Discharge diagnoses: # CAD - takes atenolol 12.5mg atenolol on even days, ASA 81mg PO daily, nitro PRN # HFpEF - Echo 01/27/21 - EF 60%, grade 2 diastolic dysfunction; moderate tricuspid/pulmonic regurgitation; mild to moderate mitral regurgitation; mild aortic regurgitation. # HTN - takes losartan 25mg PO daily (hold to allow for permissive HTN due to TIA) # PVD # s/p CABG # Transient Cerebral Ischemia - Hx of TIA # Chronic small vessel disease per previous brain MRI in 2016 # Asthma - takes singulair 10mg PO daily; albuterol PRN # Pulmonary fibrosis # Emphysema - takes advair 1 puff BID # HLD - takes crestor 20mg PO daily; last lipid panel 11/03/20 - LDL 86 # GERD - takes prilosec 40mg PO daily # BPH with weak urinary stream - takes flomax 0.4mg PO daily, finasteride 5mg PO daily # Osteoporosis - on prolia every 6 months, calcium/vitamin D BID # Osteoarthritis - takes tylenol arthritis 1300mg PO BID # Chronic hyponatremia # s/p AAA repair # Bilateral carotid stenosis - last US 2017 with < 50% stenosis bilaterally # Chronic maxillary sinusitis # Nasal polyps - takes flonase daily HPI summary: Shakeel is a 81-year-old male patient who presented to the ER by EMS this afternoon for stroke symptoms. Symptom onset occurred about an hour prior to his arrival. He was having difficulty with speech and right extremity weakness reported per family. EMS also noted some mild right sided weakness. He also was exhibiting difficulty with word retrieval and speech. Upon arrival to the ER this afternoon his symptoms had improved. He continued to have some difficulty answering questions however he was alert and oriented x3 and no distress. His motor strength had normalized. Speech symptoms also improved during his ER visit. Of note patient was evaluated by Eugenia Zuniga APRN in the [place] clinic on September 25 and sent to the ER for complaints of dizziness, difficulty finding words, slurred speech, difficulty chewing, and right arm weakness. Patient was evaluated in the [facility] ER on Tuesday with a normal neurological exam no residual deficits normal NIH stroke scale and negative head CT at that time. Patient was discharged home on Tuesday from the ER with a follow-up appointment scheduled with his primary care provider Jennifer Tim for tomorrow. Patient to be admitted on observation status given 2 ER visits for neurological symptoms over the weekend. Head CT has been negative x2, prior brain MRI indicates chronic small vessel disease. Patient does have history of prior TIA. ED course: Initial blood pressure elevated in ER. Labs overall unremarkable in ER. WBC 6.32, H GB 14.7, platelets 168. Patient has known history of mild hyponatremia sodium today is 133, K4.2, normal renal indices with BUN 18 and creatinine 1.17. Troponin negative. Head CT negative for acute intracranial findings. Radiology does note nonspecific white matter disease commonly seen as sequela of chronic microvascular ischemia which patient had previously noted on brain MRI. Hospital course: 09/27/21: Patient states he had a severe headache with onset of weakness and speech difficutly earlier today. Denies dizziness with this episode. Patient reports feeling better upon admission. No weakness or speech difficulty. Patient A/O x 3, equal strength bilaterally, cranial nerves intact, no focal neuro deficits. No carotid bruit or murmur noted. Lungs diminished, clear. Repeat labs in am. 09/28/21: Patient c/o headache and posterior neck pain of late. offers that blood pressure has been rather variable at home. Exam essentially unchanged from admission. No changed in neurological status, strength equal bilaterally, cranial nerves intact. No difficulty with word finding or aphasia. Hemodynamically acceptable BP 152/77, HR 57; remains afebrile 97.1, normal oxygenation on room air, 94%. No cardiac arrhythmias identified on telemetry. Labs unremarkable. Will plan to discharge patient home today with plans for repeat carotid ultrasound, echocardiogram, brain MRI and neuro consultation. Discharge and follow-up recommendations: - Discharge to home per self care with ; return precautions provided to return to ER for concerns prior to follow-up with PCP for recurrence of TIA/CVA s/s - New medications at discharge: HOLD losartan until follow-up at [facility] with PCP - Follow-up on Tuesday10/02/21 at [facility] with Jennifer Tim APRN, CIGARETTE CATCHER at 2:00. Patient scheduled for carotid ultrasound prior to appointment at 1:00 and echocardiogram following appointment at 3:00 for further evaluation for TIA symptoms. Brain MRI planned for , 10/08/[address] [facility]. Neurology referral placed upon discharge. - Discharge Data Discharge Date: 09/28/21 Discharge Disposition: Home, Self-Care 01 Condition: Good - Referral to Home Health Primary Care Physician: Jennifer Tim NP - Patient Instructions Diet: Heart Healthy Diet Driving: Do Not Drive Showering/Bathing: May Shower Other/Special Instructions: - HOLD Losartan until follow-up appointment with Jennifer. - Please call [facility] to schedule carotid ultrasound and echocardiogram. - Neurolology consult has been placed. - MRI to be scheduled for 10/08/21 - Discharge Plan *PRESCRIPTION DRUG MONITORING PROGRAM REVIEWED*: Not Applicable *COPY OF PRESCRIPTION DRUG MONITORING REPORT IN PATIENT BROOKS: Not Applicable Home Medications: Home Meds Calcium Carbonate/Vitamin D3 [Calcium 600 + Vit D 200] 1 tab PO BID 12/22/15 [History] Fluticasone Propionate [Flonase] 1 spray NASBOTH BID 12/22/15 [History] Fluticasone/Salmeterol [Advair Diskus 250-50] 1 puff INH BID 12/22/15 [History] Montelukast [Singulair] 10 mg PO BEDTIME 12/22/15 [History] Multivitamin [Multi-Vitamin Daily] 1 tab PO DAILY 12/22/15 [History] Nitroglycerin [Nitrostat] 0.4 mg SL ASDIRECTED PRN 12/22/15 [History] Omeprazole 40 mg PO DAILY 12/22/15 [History] polyethylene glycoL 3350 [Miralax] 17 gm PO DAILY #30 powd.pack 12/25/15 [Rx] Cholecalciferol (Vitamin D3) [Vitamin D3] 2,000 units PO DAILY 10/22/16 [History] Glucosam/Chond/Collagen/Hyalur [Glucosamine Chondroitin] 1 tab PO BID 10/22/16 [History] Rosuvastatin [Crestor] 20 mg PO DAILY 04/18/18 [History] Acetaminophen [Arthritis Pain Relief] 650 mg PO BID 09/24/21 [History] Albuterol [Ventolin HFA] 1 - 2 puff INH Q4H PRN 09/24/21 [History] Aspirin [Ecotrin EC] 81 mg PO DAILY 09/24/21 [History] Atenolol [Tenormin] 12.5 mg PO Q48H 09/24/21 [History] Diclofenac Sodium [Voltaren 1% Gel] 1 applic TOP BID PRN 09/24/21 [History] Finasteride 5 mg PO DAILY 09/24/21 [History] Tamsulosin [Flomax] 0.4 mg PO DAILY 09/24/21 [History] Prednisolone Acetate/Pf [Prednisolone Acet 1% Eye Drop] 1 drop EYERT BID 09/27/21 [History] Oxygen Therapy Mode: Room Air Referrals: Jennifer Tim, GRAIN COMBINE DRIVER [Primary Care Provider] - (Follow up with Jennifer Tim APRN, CIGARETTE CATCHER on Tuesday10/02/[address] [facility]) - Discharge Summary/Plan Comment DC Time >30 min.: Yes Total # of Minutes for Discharge Time: 35 - General Info Date of Service: 09/28/21 Functional Status: Reports: Pain Controlled, Tolerating Diet, Ambulating, Urinating. Denies: New Symptoms - Review of Systems General: Reports: No Symptoms HEENT: Reports: Headaches Pulmonary: Reports: No Symptoms Cardiovascular: Reports: Dyspnea on Exertion, Other (variable blood pressures recenlty) Gastrointestinal: Reports: No Symptoms Genitourinary: Reports: No Symptoms Musculoskeletal: Reports: Neck Pain Skin: Reports: No Symptoms Neurological: Denies: Dizziness, Trouble Speaking, Weakness, Change in Speech Psychiatric: Reports: No Symptoms - Patient Data Vitals - Most Recent: Last Vital Signs Temp 97.1 F 09/28/21 07:00 Pulse 58 L 09/28/21 08:39 Resp 18 09/28/21 07:00 BP 152/77 H 09/28/21 08:39 Pulse Ox 94 L 09/28/21 07:00 Weight - Most Recent: 182 lb I&O - Last 24 hours: Intake & Output 09/27/21 09/28/21 09/28/21 22:59 06:59 14:59 Intake Total 360 50 Balance 360 50 Lab Results - Last 24 hrs: Laboratory Results - last 24 hr 11/07/21 11/07/21 11/07/21 Range/Units 13:03 13:03 16:30 WBC 6.32 (5.00-10.00) 10^3/uL RBC 4.64 (4.50-6.00) 10^6/uL Hgb 14.7 (13.0-17.0) g/dL Hct 41.6 (40.0-52.0) % MCV 89.7 (82.0-92.0) fL MCH 31.7 H (27.0-31.0) pg MCHC 35.3 (32.0-36.0) g/dL RDW 12.7 (11.5-14.5) % Plt Count 168 (150-400) 10^3/uL MPV 8.8 (7.4-10.4) fL Immature Gran % (Auto) 0.3 (0.0-5.0) % Neut % (Auto) 47.7 L (50.0-70.0) % Lymph % (Auto) 28.6 (20.0-40.0) % Floyd % (Auto) 16.1 H (2.0-8.0) % Eos % (Auto) 6.5 H (1.0-3.0) % Baso % (Auto) 0.8 (0.0-1.0) % Neut # (Auto) 3.01 (2.50-7.00) 10^3/uL Lymph # (Auto) 1.81 (1.00-4.00) 10^3/uL Floyd # (Auto) 1.02 H (0.10-0.80) 10^3/uL Eos # (Auto) 0.41 H (0.10-0.30) 10^3/uL Baso # (Auto) 0.05 (0.00-0.10) 10^3/uL Immature Gran # (Auto) 0.02 (0.00-0.50) 10^3/uL Sodium 133 L (136-145) mmol/L Potassium 4.2 (3.5-5.1) mmol/L Chloride 96 L (98-107) mmol/L Carbon Dioxide 26.7 (21.0-32.0) mmol/L Anion Gap 14.5 (5-15) mmol/L BUN 18 (7-18) mg/dL Creatinine 1.17 (0.51-1.17) mg/dL Est Cr Clr Drug Dosing 56.19 mL/min Estimated GFR (MDRD) > 60 mL/min Glucose 125 (70-140) mg/dL Calcium 9.1 (8.7-10.3) mg/dL Magnesium (1.8-2.4) mg/dL Total Bilirubin (0.2-1.0) mg/dL AST (15-37) U/L ALT (14-63) U/L Alkaline Phosphatase (46-116) U/L Troponin I High Sens 11.100 (0-76.000) pg/mL Total Protein (6.4-8.2) g/dL Albumin (3.40-5.00) g/dL SARS CoV-2 RNA Rapid SANGITA Negative (NEGATIVE) 09/28/21 09/28/21 Range/Units 07:30 07:30 WBC 5.97 (5.00-10.00) 10^3/uL RBC 4.45 L (4.50-6.00) 10^6/uL Hgb 14.0 (13.0-17.0) g/dL Hct 40.5 (40.0-52.0) % MCV 91.0 (82.0-92.0) fL MCH 31.5 H (27.0-31.0) pg MCHC 34.6 (32.0-36.0) g/dL RDW 12.9 (11.5-14.5) % Plt Count 170 (150-400) 10^3/uL MPV 8.7 (7.4-10.4) fL Immature Gran % (Auto) 0.3 (0.0-5.0) % Neut % (Auto) 54.0 (50.0-70.0) % Lymph % (Auto) 23.6 (20.0-40.0) % Floyd % (Auto) 13.6 H (2.0-8.0) % Eos % (Auto) 7.5 H (1.0-3.0) % Baso % (Auto) 1.0 (0.0-1.0) % Neut # (Auto) 3.22 (2.50-7.00) 10^3/uL Lymph # (Auto) 1.41 (1.00-4.00) 10^3/uL Floyd # (Auto) 0.81 H (0.10-0.80) 10^3/uL Eos # (Auto) 0.45 H (0.10-0.30) 10^3/uL Baso # (Auto) 0.06 (0.00-0.10) 10^3/uL Immature Gran # (Auto) 0.02 (0.00-0.50) 10^3/uL Sodium 134 L (136-145) mmol/L Potassium 4.3 (3.5-5.1) mmol/L Chloride 100 (98-107) mmol/L Carbon Dioxide 26.9 (21.0-32.0) mmol/L Anion Gap 11.4 (5-15) mmol/L BUN 16 (7-18) mg/dL Creatinine 0.96 (0.51-1.17) mg/dL Est Cr Clr Drug Dosing 68.48 mL/min Estimated GFR (MDRD) > 60 mL/min Glucose 94 (70-140) mg/dL Calcium 8.5 L (8.7-10.3) mg/dL Magnesium 1.8 (1.8-2.4) mg/dL Total Bilirubin 0.4 (0.2-1.0) mg/dL AST 17 (15-37) U/L ALT 24 (14-63) U/L Alkaline Phosphatase 37 L (46-116) U/L Troponin I High Sens (0-76.000) pg/mL Total Protein 6.1 L (6.4-8.2) g/dL Albumin 3.00 L (3.40-5.00) g/dL SARS CoV-2 RNA Rapid SANGITA (NEGATIVE) Med Orders - Current: Current Medications Acetaminophen (Acetaminophen 650 Mg Tab.Er) 650 mg PO BID [facility] Last Admin: 09/28/21 08:37 Dose: 650 mg Documented by: Albuterol (Albuterol 8 Gm Inhaler) 0 gm INH Q4H PRN PRN Reason: Shortness of Breath Aspirin (Aspirin 81 Mg Tab.Ec) 81 mg PO DAILY [facility] Last Admin: 09/28/21 08:37 Dose: 81 mg Documented by: Atenolol (Atenolol 25 Mg Tab) 12.5 mg PO Q48H [facility] Last Admin: 09/28/21 08:39 Dose: 12.5 mg Documented by: Diclofenac Sodium (Diclofenac Sodium 1% Gel 100 Gm Tube) 1 gm TOP BID PRN PRN Reason: Pain Finasteride (Finasteride 5 Mg Tab) 5 mg PO DAILY [facility] Last Admin: 09/28/21 08:37 Dose: 5 mg Documented by: Fluticasone Propionate (Fluticasone Propionate Nasal [place] 16 Gm Bottle) 0 gm NASBOTH BID [facility] Last Admin: 09/28/21 08:58 Dose: 1 spray Documented by: Montelukast Sodium (Montelukast 10 Mg Tab) 10 mg PO BEDTIME [facility] Last Admin: 09/27/21 20:09 Dose: 10 mg Documented by: Pantoprazole Sodium (Pantoprazole 40 Mg Tab.Cr) 40 mg PO DAILY [facility] Last Admin: 09/28/21 08:37 Dose: 40 mg Documented by: Advair Diskus Inhaler 250/50 - Ptom 1 each PO BID [facility] Last Admin: 09/28/21 10:05 Dose: 1 each Documented by: Prednisolone Acetate (Prednisolone Acetate 1% Ophth Susp 5 Ml Bottle) 0 ml EYERT BID [facility] Last Admin: 09/28/21 08:42 Dose: 1 drop Documented by: Tamsulosin HCl (Tamsulosin 0.4 Mg Cap.Er) 0.4 mg PO DAILY [facility] Last Admin: 09/28/21 08:37 Dose: 0.4 mg Documented by: Discontinued Medications Diclofenac Sodium (Diclofenac Sodium 1% Gel 100 Gm Tube) gm TOP BID PRN PRN Reason: Pain Mometasone Furoate/Formoterol Fumar (Formoterol/Mometasone 200-5 Mcg 8.8 Gm Inhaler) 2 puff IH BID [facility] Last Admin: 09/28/21 10:22 Dose: Not Given Documented by: Pantoprazole Sodium (Pantoprazole 20 Mg Tab, Delayed Release) 20 mg PO BEDTIME PARAG - Exam Quality Assessment: Denies: Supplemental Oxygen General: Reports: Alert, Oriented, Cooperative, No Acute Distress HEENT: Reports: Pupils Equal, Pupils Reactive, Mucous Membr. Moist/[place] Neck: Reports: Supple, Trachea Midline Lungs: Reports: Decreased Breath Sounds. Denies: Crackles, Rales, Wheezing Cardiovascular: Reports: Regular Rate, Regular Rhythm, No Murmurs GI/Abdominal Exam: Normal Bowel Sounds, Soft, Non-Tender, No Distention (Male) Exam: Deferred Rectal (Males) Exam: Deferred Back Exam: Reports: Normal Inspection, Full Range of Motion Extremities: Normal Inspection, Normal Range of Motion, Non-Tender, No Pedal Edema, Normal Capillary Refill Skin: Reports: Warm, Dry, Intact Neurological: Reports: No New Focal Deficit Psy/Mental Status: Reports: Alert, Normal Affect, Normal Mood
[2021-09-28 12:49] VITALS: BP 149/80; PULSE 61
== END 2021-09-28 14:15 | disposition home or self-care (01) ==
LOC: KA.ED 15:07 → KA.MS 16:16
PROVIDERS: ADMIT Physician Assistant; ATTEND Nurse Practitioner Family
DX: G45.9 Transient cerebral ischemic attack, unspecified (principal); I25.10 Atherosclerotic heart disease of native coronary artery without angina pectoris; I50.30 Unspecified diastolic (congestive) heart failure; I73.9 Peripheral vascular disease, unspecified; J84.10 Pulmonary fibrosis, unspecified; J43.9 Emphysema, unspecified; E78.5 Hyperlipidemia, unspecified; K21.9 Gastro-esophageal reflux disease without esophagitis; M81.0 Age-related osteoporosis without current pathological fracture; J32.0 Chronic maxillary sinusitis; I65.23 Occlusion and stenosis of bilateral carotid arteries; E87.1 Hypo-osmolality and hyponatremia; N40.1 Benign prostatic hyperplasia with lower urinary tract symptoms; R39.12 Poor urinary stream; I11.0 Hypertensive heart disease with heart failure; Z20.822 Contact with and (suspected) exposure to COVID-19
CPT/HCPCS: 36415; 70450; 80048; 80053; 83735; 84484; 85025; 93005; 99284; 99285-25; A9270-GY; G0378; U0002

== ENCOUNTER 2021-10-09 12:16 | Emergency (ER) | payer MEDICARE, OTHER ==
[2021-10-09] MEDS ORDERED: Sodium Chloride 0.9% 10 ML Syringe FLUSH PRN (12:22)
--- NOTE | 2021-10-09 12:44 | EDM.PDOC ---
ED HPI GENERAL MEDICAL PROBLEM - General Chief Complaint: General Stated Complaint: HYPERTENSION WITH HEADACHE AND SHORTNESS OF BREATH Time Seen by Provider: 10/09/21 12:20 Source of Information: Reports: Patient History Limitations: Reports: No Limitations - History of Present Illness INITIAL COMMENTS - FREE TEXT/NARRATIVE: 81 YO WM WHO PRESENTS TO ER ACCOMPANIED BY WITH COMPLAINTS OF GENERALIZED HEADACHE AND NOT FEELING WELL. PT HAS BEEN RECENTLY EVALUATED FOR TIA SYMPTOMS OVER THE LAST WEEK. PT WAS SEEN IN ER ON 09/24/2021 FOR RIGHT SIDED WEAKNESS WHICH RESOLVED WITH ASSOCIATED HEADACHE AND HYPERTENSION. PT WAS DISCHARGED HOME WITH FOLLOW UP TO PCP. PT REPORTS NEUROLOGICALLY HE HAD NO FURTHER WEAKNESS, BUT HE WAS HAVING SOME MEMORY/COGNITIVE ISSUES PROMPTING AN OBS IN HOSPITAL ON -. PT WAS DISCHARGED WITHOUT ANY ADDITIONAL FINDINGS AND WAS SCHEDULED FOR MRI YESTERDAY. MRI REVEALS NO ACUTE PROCESS, SMALL VESSEL DISEASE AND CHRONIC SINUSITIS. TODAY PT REPORTS HE DEVELOPED A HEADACHE AGAIN WHICH WAS UNRELIEVED BY TYLENOL PROMPTING ER VISIT. PT WAS FOUND TO HAVE BP- 190/87 UPON ARRIVAL TO ER. PT DENIES CHEST PAIN BUT STATES HE DOES FEEL SOME MILD SHORTNESS OF BREATH. PT DENIES DIZZINESS, NO NAUSEA/VOMITING OR DIAPHORESIS. PT DENIES FEVER/CHILLS, NO COUGH/CONGESTION, NO KNOWN COVID EXPOSURES OR URI SYMPTOMS. PT STATES HE TAKE ATENOLOL 12.5MG DAILY FOR BLOOD PRESSURE. Onset: Today Duration: Intermittent, Recurring, Waxing/Waning Location: Reports: Head, Generalized Quality: Reports: Ache Severity: Moderate Improves with: Reports: None Worsens with: Reports: None Associated Symptoms: Reports: No Other Symptoms, Headaches, Shortness of Breath. Denies: Chest Pain, Cough, Diaphoresis, Fever/Chills, Nausea/Vomiting, Seizure, Syncope, Weakness - Related Data Allergies Allergy/AdvReac Type Severity Reaction Status Date / Time benzocaine [From Solarcaine] Allergy Rash Verified 10/09/21 12:46 Sulfa (Sulfonamide Allergy Swelling Verified 10/09/21 12:46 Antibiotics) triclosan [From Solarcaine] Allergy Rash Verified 10/09/21 12:46 Home Meds: Home Meds Calcium Carbonate/Vitamin D3 [Calcium 600 + Vit D 200] 1 tab PO BIDMEALS 12/22/15 [History] Fluticasone Propionate [Flonase] 1 spray NASBOTH BID 12/22/15 [History] Fluticasone/Salmeterol [Advair Diskus 250-50] 1 puff INH BID 12/22/15 [History] Montelukast [Singulair] 10 mg PO BEDTIME 12/22/15 [History] Multivitamin [Multi-Vitamin Daily] 1 tab PO DAILY 12/22/15 [History] Nitroglycerin [Nitrostat] 0.4 mg SL ASDIRECTED PRN 12/22/15 [History] Omeprazole 40 mg PO DAILY 12/22/15 [History] polyethylene glycoL 3350 [Miralax] 17 gm PO DAILY #30 powd.pack 12/25/15 [Rx] Cholecalciferol (Vitamin D3) [Vitamin D3] 2,000 units PO DAILY 10/22/16 [History] Glucosam/Chond/Collagen/Hyalur [Glucosamine Chondroitin] 1 tab PO BID 10/22/16 [History] Rosuvastatin [Crestor] 20 mg PO DAILY 04/18/18 [History] Albuterol [Ventolin HFA] 1 - 2 puff INH Q4H PRN 09/24/21 [History] Aspirin [Ecotrin EC] 81 mg PO DAILY 09/24/21 [History] Atenolol [Tenormin] 12.5 mg PO Q48H 09/24/21 [History] Diclofenac Sodium [Voltaren 1% Gel] 1 applic TOP BID PRN 09/24/21 [History] Finasteride 5 mg PO DAILY 09/24/21 [History] Tamsulosin [Flomax] 0.4 mg PO DAILY 09/24/21 [History] Acetaminophen [Acetaminophen Extra Strength] 1,000 mg PO BID PRN 10/09/21 [History] Tobramycin/Dexamethasone [Tobramycin-Dexameth Ophth Susp] 1 drop EYERT BID 10/09/21 [History] lisinopriL [Lisinopril] 5 mg PO DAILY #30 tablet 10/09/21 [Rx] Past Medical History HEENT History: Reports: Impaired Vision, Sinusitis Other HEENT History: chronic sinusitis. seasonal allergies. nasal polyps. mass of left ear auricle. nodule of left external ear Cardiovascular History: Reports: Aneurysm, Blood Clots/VTE/DVT, Bypass, CAD, Heart Failure, Hypertension, [place], PVD Other Cardiovascular History: bilateral carotid stenosis Respiratory History: Reports: Asthma, Pneumonia, Recurrent, Pulmonary Fibrosis, SOB Other Respiratory History: emphysema. SOB with exertion Gastrointestinal History: Reports: GERD Genitourinary History: Reports: BPH, Other (See Below) Other Genitourinary History: left renal artery stenosis Musculoskeletal History: Reports: Arthritis, Osteoarthritis, Osteoporosis Neurological History: Reports: TIA Other Neuro History: multiple and bilateral precerebral artery syndromes Psychiatric History: Reports: None Endocrine/Metabolic History: Reports: None Hematologic History: Reports: Anemia Immunologic History: Reports: None Oncologic (Cancer) History: Reports: None Dermatologic History: Reports: None - Infectious Disease History Infectious Disease History: Reports: Chicken Pox, Measles - Past Surgical History Head Surgeries/Procedures: Reports: None HEENT Surgical History: Reports: Naso-Sinus Surgery Cardiovascular Surgical History: Reports: Aneurysm, Coronary Artery Bypass, Vascular Surgery Respiratory Surgical History: Reports: Other (See Below) Other Respiratory Surgeries/Procedures: sinus GI Surgical History: Reports: Colonoscopy Endocrine Surgical History: Reports: None Neurological Surgical History: Reports: None Musculoskeletal Surgical History: Reports: Arthroscopic Knee Other Musculoskeletal Surgeries/Procedures:: arthritis of hands Oncologic Surgical History: Reports: None Dermatological Surgical History: Reports: None Social & Family History - Family History Family Medical History: No Pertinent Family History Cardiac: Reports: Hypertension Neurological: Reports: CVA - Caffeine Use Caffeine Use: Reports: Tea ED ROS GENERAL - Review of Systems Review Of Systems: See Below Constitutional: Reports: No Symptoms HEENT: Reports: No Symptoms Respiratory: Reports: Shortness of Breath Cardiovascular: Reports: No Symptoms Endocrine: Reports: No Symptoms GI/Abdominal: Reports: No Symptoms : Reports: No Symptoms Musculoskeletal: Reports: No Symptoms Skin: Reports: No Symptoms Neurological: Reports: Headache. Denies: Confusion, Dizziness, Numbness, Paresthesia, Pre-Existing Deficit, Syncope, Trouble Speaking, Difficulty Walking, Weakness, Change in Speech, Gait Disturbance Psychiatric: Reports: No Symptoms Hematologic/Lymphatic: Reports: No Symptoms Immunologic: Reports: No Symptoms ED EXAM, GENERAL - Physical Exam Exam: See Below Exam Limited By: No Limitations General Appearance: Alert, WD/WN, No Apparent Distress Eye Exam: Bilateral Eye: EOMI, PERRL Head: Atraumatic, Normocephalic Neck: Normal Inspection, Supple, Non-Tender, Full Range of Motion Respiratory/Chest: No Respiratory Distress, Lungs Clear, Normal Breath Sounds, No Accessory Muscle Use, Chest Non-Tender Cardiovascular: Normal Peripheral Pulses, Regular Rate, Rhythm, No Edema, No Gallop, No JVD, No Murmur, No Rub GI/Abdominal: Normal Bowel Sounds, Soft, Non-Tender, No Organomegaly, No Distention, No Abnormal Bruit, No Mass Back Exam: Normal Inspection, Full Range of Motion, NT Extremities: Normal Inspection, Normal Range of Motion, Non-Tender, Normal Capillary Refill, No Pedal Edema Neurological: Alert, Oriented, CN II-XII Intact, Normal Cognition, Normal Gait, No Motor/Sensory Deficits Psychiatric: Normal Affect, Normal Mood Skin Exam: Warm, Dry, Intact, Normal Color, No Rash Lymphatic: No Adenopathy #1 Interpretation EKG Date: 10/09/21 Time: 12:37 Rhythm: NSR Rate (Beats/Min): 59 Nadeau: LAD-Left Nadeau Deviation P-Wave: Present QRS: Normal ST-T: Normal QT: Normal Course - Vital Signs Last Recorded V/S: Last Vital Signs Temp 97.0 F 10/09/21 12:39 Pulse 62 10/09/21 12:39 Resp 21 H 10/09/21 12:39 BP 193/97 H 10/09/21 12:39 Pulse Ox 97 10/09/21 12:39 - Orders/Labs/Meds Orders: Active Orders 24 hr Category Date Time Status Cardiac Monitoring [RC] . DIRECTED Care 10/09/21 12:22 Active EKG Documentation Completion [RC] ASDIRECTED Care 10/09/21 12:23 Active Peripheral IV Care [RC] . DIRECTED Care 10/09/21 12:23 Active Sodium Chloride 0.9% [Saline Flush] Med 10/09/21 12:22 Active 10 ml FLUSH Q8HR PRN Peripheral IV Insertion Adult [OM.PC] Routine Oth 10/09/21 12:22 Ordered EKG 12 Lead [EK] Stat Ther 10/09/21 12:22 Ordered Medication Orders Sodium Chloride (Sodium Chloride 0.9% 10 Ml Syringe) 10 ml FLUSH Q8HR PRN PRN Reason: keep vein open Last Admin: 10/09/21 13:05 Dose: 10 ml Documented by: MANDA Labs: Laboratory Tests 11/19/21 11/19/21 Range/Units 12:35 12:35 WBC 6.02 (5.00-10.00) 10^3/uL RBC 4.56 (4.50-6.00) 10^6/uL Hgb 14.1 (13.0-17.0) g/dL Hct 41.8 (40.0-52.0) % MCV 91.7 (82.0-92.0) fL MCH 30.9 (27.0-31.0) pg MCHC 33.7 (32.0-36.0) g/dL RDW 12.7 (11.5-14.5) % Plt Count 186 (150-400) 10^3/uL MPV 8.6 (7.4-10.4) fL Immature Gran % (Auto) 0.3 (0.0-5.0) % Neut % (Auto) 56.0 (50.0-70.0) % Lymph % (Auto) 22.4 (20.0-40.0) % [place] % (Auto) 12.0 H (2.0-8.0) % Eos % (Auto) 8.6 H (1.0-3.0) % Baso % (Auto) 0.7 (0.0-1.0) % Neut # (Auto) 3.37 (2.50-7.00) 10^3/uL Lymph # (Auto) 1.35 (1.00-4.00) 10^3/uL [place] # (Auto) 0.72 (0.10-0.80) 10^3/uL Eos # (Auto) 0.52 H (0.10-0.30) 10^3/uL Baso # (Auto) 0.04 (0.00-0.10) 10^3/uL Immature Gran # (Auto) 0.02 (0.00-0.50) 10^3/uL Sodium 134 L (136-145) mmol/L Potassium 4.6 (3.5-5.1) mmol/L Chloride 98 (98-107) mmol/L Carbon Dioxide 27.0 (21.0-32.0) mmol/L Anion Gap 13.6 (5-15) mmol/L BUN 14 (7-18) mg/dL Creatinine 0.90 (0.51-1.17) mg/dL Est Cr Clr Drug Dosing 73.05 mL/min Estimated GFR (MDRD) > 60 mL/min Glucose 95 (70-140) mg/dL Calcium 9.0 (8.7-10.3) mg/dL Total Bilirubin 0.4 (0.2-1.0) mg/dL AST 19 (15-37) U/L ALT 22 (14-63) U/L Alkaline Phosphatase 46 (46-116) U/L Troponin I High Sens 11.200 (0-76.000) pg/mL Total Protein 6.4 (6.4-8.2) g/dL Albumin 3.27 L (3.40-5.00) g/dL Meds: Medications Generic Name Dose Route Start Last Admin Trade Name Freq PRN Reason Stop Dose Admin Sodium Chloride 10 ml 10/09/21 12:22 10/09/21 13:05 Sodium Chloride 0.9% 10 Ml Syringe FLUSH 10 ml Q8HR PRN Administration keep vein open Discontinued Medications Generic Name Dose Route Start Last Admin Trade Name Freq PRN Reason Stop Dose Admin Lorazepam 1 mg 10/09/21 12:50 10/09/21 13:00 Lorazepam 2 Mg/Ml Sdv IVPUSH 10/09/21 12:51 1 mg ONETIME ONE Administration - Radiology Interpretation Free Text/Narrative:: CXR- BIBASILAR ATELECTASIS Departure - Departure Time of Disposition: 13:42 Disposition: Home, Self-Care 01 Condition: Good Clinical Impression: Hypertensive urgency Headache Qualifiers: Headache chronicity pattern: acute headache Intractability: not intractable - Discharge Information Prescriptions: lisinopriL [Lisinopril] 5 mg PO DAILY #30 tablet Instructions: General Headache Without Cause, Hypertension, Adult Referrals: Jennifer Tim [employer] ADMINISTRATOR [Primary Care Provider] - Forms: ED Department Discharge Additional Instructions: 1. DISCHARGE HOME- PT GIVEN OPTION TO STAY FOR OBSERVATION IN HOSPITAL FOR FURTHER MANAGEMENT OF HYPERTENSION, BUT PATIENT WOULD PREFER TO GO HOME AND FOLLOW UP IN CLINIC 10/12/21 2. ADD LISINOPRIL 5MG DAILY IN AM 3. MONITOR BP 2X/DAY AND LOG READINGS AND BRING TO CLINIC ON 10/12/2021 4. AVOID CAFFEINE 5. RETURN TO ER FOR WORSENING HEADACHE, ANY CHEST PAIN OR BP READINGS ABOVE 220/110 6. FOLLOW UP WITH CLINIC ON 10/12/21- CALL TODAY FOR APPOINTMENT TIME. Sepsis Event Note (ED) - Focused Exam Vital Signs: Vital Signs Temp Pulse Resp BP Pulse Ox 10/09/21 12:39 97.0 F 62 21 H 193/97 H 97 - My Orders Last 24 Hours: My Active Orders 10/09/21 12:22 Cardiac Monitoring [RC] . DIRECTED Sodium Chloride 0.9% [Saline Flush] 10 ml FLUSH Q8HR PRN Peripheral IV Insertion Adult [OM.PC] Routine EKG 12 Lead [EK] Stat 10/09/21 12:23 EKG Documentation Completion [RC] ASDIRECTED Peripheral IV Care [RC] . DIRECTED - Assessment/Plan Last 24 Hours: My Active Orders 10/09/21 12:22 Cardiac Monitoring [RC] . DIRECTED Sodium Chloride 0.9% [Saline Flush] 10 ml FLUSH Q8HR PRN Peripheral IV Insertion Adult [OM.PC] Routine EKG 12 Lead [EK] Stat 10/09/21 12:23 EKG Documentation Completion [RC] ASDIRECTED Peripheral IV Care [RC] . DIRECTED Assessment:: 1. HYPERTENSIVE URGENCY 2. GENERALIZED HEADACHE Plan: 1. DISCHARGE HOME- PT GIVEN OPTION TO STAY FOR OBSERVATION IN HOSPITAL FOR FURTHER MANAGEMENT OF HYPERTENSION, BUT PATIENT WOULD PREFER TO GO HOME AND FOLLOW UP IN CLINIC 10/12/21 2. ADD LISINOPRIL 5MG DAILY IN AM 3. MONITOR BP 2X/DAY AND LOG READINGS AND BRING TO CLINIC ON 10/12/2021 4. AVOID CAFFEINE 5. RETURN TO ER FOR WORSENING HEADACHE, ANY CHEST PAIN OR BP READINGS ABOVE 220/110 6. FOLLOW UP WITH CLINIC ON 10/12/21- CALL TODAY FOR APPOINTMENT TIME.
[2021-10-09] MEDS ORDERED: LORazepam 2 MG/ML SDV IVPUSH ONE (12:50)
--- NOTE | 2021-10-09 12:56 | CR ---
[id number] RAD/RAD Chest PA or AP 1V EXAM: FRONTAL CHEST INDICATION: SHORTNESS OF BREATH. COMPARISON: October 22, 2016. DISCUSSION: Low lung volumes. Mild bilateral atelectasis and possible infiltrates. Cardiomegaly with no evidence of edema. No effusions. Sternotomy. IMPRESSION: 1. Mild bibasilar atelectasis and possible infiltrates. Andre Leon MD 10/09/21 [id number] Thank you for allowing us to participate in the care of your patient.
[2021-10-09 13:10] LABS: ANION GAP 13.6 mmol/L (5-15); CHLORIDE,CL 98 mmol/L (98-107); SODIUM,NA 134 mmol/L (136-145)
[2021-10-09 13:23] VITALS: PULSE 57
[2021-10-09] MEDS ORDERED: Lisinopril 5 MG Tab PO ONE (13:33)
[2021-10-09 13:43] VITALS: BP 185/87
== END 2021-10-09 13:45 | disposition home or self-care (01) ==
LOC: KA.ED 12:16
DX: I16.0 Hypertensive urgency (principal); I25.810 Atherosclerosis of coronary artery bypass graft(s) without angina pectoris; I11.0 Hypertensive heart disease with heart failure; I50.9 Heart failure, unspecified; I25.2 Old myocardial infarction; J43.9 Emphysema, unspecified; K21.9 Gastro-esophageal reflux disease without esophagitis; N40.0 Benign prostatic hyperplasia without lower urinary tract symptoms; M19.90 Unspecified osteoarthritis, unspecified site; Z88.8 Allergy status to other drugs, medicaments and biological substances; Z88.2 Allergy status to sulfonamides; Z79.82 Long term (current) use of aspirin; Z79.899 Other long term (current) drug therapy
CPT/HCPCS: 36415; 71045; 80053; 84484; 85025; 93005; 96374; 99284-25; A9270-GY; J2060

== ENCOUNTER 2022-01-29 23:10 | Emergency (ER) | payer MEDICARE, OTHER ==
[2022-01-30 00:06] LABS: ANION GAP 9.8 mmol/L (5-15); CHLORIDE,CL 98 mmol/L (98-107); SODIUM,NA 132 mmol/L (136-145)
[2022-01-30] MEDS: Metoprolol Tartrate 5 MG/5 ML SDV IVPUSH ONE (00:12)
[2022-01-30] MEDS: Losartan 50 MG Tab PO ONE (01:02)
[2022-01-30 01:17] VITALS: BP 176/92; PULSE 57
== END 2022-01-30 01:26 | disposition home or self-care (01) ==
LOC: KA.ED 23:10
DX: G45.9 Transient cerebral ischemic attack, unspecified (principal); E87.1 Hypo-osmolality and hyponatremia; I10 Essential (primary) hypertension; I25.10 Atherosclerotic heart disease of native coronary artery without angina pectoris; I11.0 Hypertensive heart disease with heart failure; I50.9 Heart failure, unspecified; K21.9 Gastro-esophageal reflux disease without esophagitis; M19.90 Unspecified osteoarthritis, unspecified site; Z86.73 Personal history of transient ischemic attack (TIA), and cerebral infarction without residual deficits; Z88.4 Allergy status to anesthetic agent; Z88.2 Allergy status to sulfonamides; Z88.8 Allergy status to other drugs, medicaments and biological substances; Z79.899 Other long term (current) drug therapy
CPT/HCPCS: 36415; 70450; 71046; 80053; 83880; 84484; 85025; 93005; 93010; 96374; 99284; 99284-25; A9270-GY; J3490

== ENCOUNTER 2022-02-04 14:23 | Emergency (ER) | payer MEDICARE, OTHER ==
[2022-02-04 15:20] VITALS: BP 178/82; PULSE 56
== END 2022-02-04 15:20 | disposition home or self-care (01) ==
LOC: KA.ED 14:23
DX: I11.0 Hypertensive heart disease with heart failure (principal); I50.9 Heart failure, unspecified; I25.10 Atherosclerotic heart disease of native coronary artery without angina pectoris; E78.00 Pure hypercholesterolemia, unspecified; I25.2 Old myocardial infarction; K21.9 Gastro-esophageal reflux disease without esophagitis; N40.0 Benign prostatic hyperplasia without lower urinary tract symptoms; Z88.4 Allergy status to anesthetic agent; Z88.2 Allergy status to sulfonamides; Z88.8 Allergy status to other drugs, medicaments and biological substances; Z79.82 Long term (current) use of aspirin; Z79.899 Other long term (current) drug therapy; Z86.73 Personal history of transient ischemic attack (TIA), and cerebral infarction without residual deficits
CPT/HCPCS: 93005; 93010; 99283-25; 99284

== ENCOUNTER 2022-07-30 20:04 | Emergency (ER) | payer MEDICARE, OTHER ==
[2022-07-30] MEDS ORDERED: Sodium Chloride 0.9% 10 ML Syringe FLUSH PRN (20:14)
[2022-07-30] MEDS ORDERED: Labetalol 100 MG/20 ML MDV IVPUSH ONE (20:16)
[2022-07-30 20:46] LABS: ANION GAP 9.9 mmol/L (5-15)
[2022-07-30 20:55] LABS: PTT,PARTIAL THROMBOPLSTIN TIME 27.6 SEC (22.8-31.4)
[2022-07-30] MEDS ORDERED: Hydrochlorothiazide 25 MG Tab PO ONE (21:18)
[2022-07-31 00:59] VITALS: BP 158/80; PULSE 79
== END 2022-07-30 22:10 | disposition home or self-care (01) ==
LOC: KA.ED 20:04
DX: I16.0 Hypertensive urgency (principal); I11.0 Hypertensive heart disease with heart failure; I50.9 Heart failure, unspecified; E78.00 Pure hypercholesterolemia, unspecified; I25.2 Old myocardial infarction; K21.9 Gastro-esophageal reflux disease without esophagitis; Z88.8 Allergy status to other drugs, medicaments and biological substances; Z88.2 Allergy status to sulfonamides; Z88.4 Allergy status to anesthetic agent; Z79.899 Other long term (current) drug therapy; Z79.82 Long term (current) use of aspirin; Z86.73 Personal history of transient ischemic attack (TIA), and cerebral infarction without residual deficits; Z95.1 Presence of aortocoronary bypass graft; Z20.822 Contact with and (suspected) exposure to COVID-19
CPT/HCPCS: 36415; 70450; 71045; 80053; 84484; 85025; 85610; 85730; 93010; 96374; 99284; 99284-25; A9270-GY; J3490; U0002

== ENCOUNTER 2023-01-26 17:30 | Emergency (ER) | payer MEDICARE, OTHER ==
[2023-01-26 18:48] LABS: ANION GAP 10.6 mmol/L (5-15)
[2023-01-26] MEDS: Labetalol 100 MG/20 ML MDV IVPUSH ONE ×2 (19:08→19:29)
[2023-01-26] MEDS: cloNIDine 0.1 MG Tab PO ONE (20:00)
[2023-01-26 20:03] VITALS: PULSE 60
[2023-01-26 20:38] VITALS: BP 176/91
== END 2023-01-26 20:40 | disposition home or self-care (01) ==
LOC: KA.ED 17:30
DX: I11.0 Hypertensive heart disease with heart failure (principal); I50.9 Heart failure, unspecified; J43.9 Emphysema, unspecified; I25.10 Atherosclerotic heart disease of native coronary artery without angina pectoris; E78.00 Pure hypercholesterolemia, unspecified; I25.2 Old myocardial infarction; M19.90 Unspecified osteoarthritis, unspecified site; N40.0 Benign prostatic hyperplasia without lower urinary tract symptoms; Z88.4 Allergy status to anesthetic agent; Z88.2 Allergy status to sulfonamides; Z88.8 Allergy status to other drugs, medicaments and biological substances; Z86.73 Personal history of transient ischemic attack (TIA), and cerebral infarction without residual deficits; Z79.899 Other long term (current) drug therapy; Z95.1 Presence of aortocoronary bypass graft
CPT/HCPCS: 80053; 84484; 85025; 96374; 99283-25; A9270-GY; J3490

== ENCOUNTER 2024-02-23 12:20 | Observation (INO) | payer MEDICARE, OTHER ==
[2024-02-23] MEDS ORDERED: Sodium Chloride 0.9% 10 ML Syringe FLUSH PRN (12:22)
[2024-02-23 12:31] LABS: BASOPHILS ABSOLUTE AUTO 0.02 10^3/uL (0.00-0.10); BASOPHILS PERCENT AUTO 0.3 % (0.0-1.0); EOSINOPHILS ABSOLUTE AUTO 0.21 10^3/uL (0.10-0.30); EOSINOPHILS PERCENT AUTO 2.9 % (1.0-3.0); HEMATOCRIT 42.9 % (40.0-52.0); IMMATURE GRAN ABSOLUTE AUTO 0.03 10^3/uL (0.00-0.50); IMMATURE GRAN PERCENT AUTO 0.4 % (0.0-5.0); LYMPHOCYTES ABSOLUTE AUTO 2.58 10^3/uL (1.00-4.00); LYMPHOCYTES PERCENT AUTO 35.5 % (20.0-40.0); MEAN CORPUSCULAR HEMOGLOBIN 32.3 pg (27.0-31.0); MEAN CORPUSCULAR VOLUME 92.3 fL (82.0-92.0); MEAN PLATELET VOLUME 8.6 fL (7.4-10.4); MONOCYTES ABSOLUTE AUTO 0.98 10^3/uL (0.10-0.80); MONOCYTES PERCENT AUTO 13.5 % (2.0-8.0); NEUTROPHILS ABSOLUTE AUTO 3.45 10^3/uL (2.50-7.00); NEUTROPHILS PERCENT AUTO 47.4 % (50.0-70.0); PLATELET COUNT,PLT 180 10^3/uL (150-400); RED BLOOD CELL COUNT 4.65 10^6/uL (4.50-6.00); RED CELL DISTRIBUTION WIDTH 13.3 % (11.5-14.5); WHITE BLOOD CELL COUNT,WBC 7.27 10^3/uL (5.00-10.00)
[2024-02-23 12:50] LABS: ALBUMIN 3.08 g/dL (3.40-5.00); ANION GAP 13.5 mmol/L (5-15); BILIRUBIN TOTAL 0.5 mg/dL (0.2-1.0); CALCIUM 9.3 mg/dL (8.7-10.3); CARBON DIOXIDE,CO2 28.3 mmol/L (21.0-32.0); CREATININE 1.02 mg/dL (0.51-1.17); EST CRCL DRUG DOSING (CG) 60.49 mL/min; POTASSIUM,K 3.8 mmol/L (3.5-5.1); PROTEIN TOTAL,TP 6.3 g/dL (6.4-8.2)
[2024-02-23 13:11] LABS: PROTHROMBIN TIME 10.4 SEC (9.3-12.2); PTT,PARTIAL THROMBOPLSTIN TIME 20.6 SEC (23.3-34.9)
[2024-02-23 13:25] LABS: APPEARANCE,URINE CLEAR (CLEAR); BILIRUBIN,URINE NEGATIVE (NEGATIVE); COLOR,URINE YELLOW (YELLOW); GLUCOSE,URINE NEGATIVE (NEGATIVE); KETONES,URINE NEGATIVE (NEGATIVE); LEUKOCYTE ESTERASE,URINE NEGATIVE (NEGATIVE); NITRITE,URINE NEGATIVE (NEGATIVE); OCCULT BLOOD,URINE NEGATIVE (NEGATIVE); PROTEIN,URINE TRACE mg/dL (NEGATIVE); UROBILINOGEN,URINE 0.2 E.U./dL (0.2-1.0)
[2024-02-23 13:32] LABS: BACTERIA,URINE OCCASIONAL /HPF (NONE TO FEW); EPITHELIAL CELLS,URINE RARE /LPF; RBC,URINE 0-5 /HPF (0-5); WBC,URINE 0-5 /HPF (0-5)
[2024-02-23] MEDS ORDERED: Polyethylene Glycol 3350 Powder 17 GM Packet PO PRN (15:18)
[2024-02-23] MEDS ORDERED: Nitroglycerin 0.4 MG Tab.SL SL PRN (15:18)
[2024-02-23] MEDS ORDERED: Albuterol 8 GM Inhaler INH PRN (15:18)
[2024-02-23] MEDS: Acetaminophen 325 MG Tab PO PRN (20:38)
[2024-02-23] MEDS: Tamsulosin 0.4 MG Cap.ER *PT OWN MED PO SCH (20:40)
[2024-02-23] MEDS: CARVEDILOL 3.125 MG PO SCH (20:40)
[2024-02-23] MEDS: ADVAIR INH SCH (20:40)
[2024-02-23] MEDS: LOSARTAN 50 MG PO SCH (20:41)
[2024-02-23] MEDS: FINASTERIDE 5 MG PO SCH (20:41)
[2024-02-24 07:37] LABS: ALBUMIN 2.9 g/dL (3.40-5.00); ANION GAP 11.7 mmol/L (5-15); BILIRUBIN TOTAL 0.6 mg/dL (0.2-1.0); CALCIUM 8.8 mg/dL (8.7-10.3); CARBON DIOXIDE,CO2 30.6 mmol/L (21.0-32.0); CREATININE 0.96 mg/dL (0.51-1.17); EST CRCL DRUG DOSING (CG) 64.28 mL/min; MAGNESIUM 1.9 mg/dL (1.8-2.4); POTASSIUM,K 5.3 mmol/L (3.5-5.1); PROTEIN TOTAL,TP 5.9 g/dL (6.4-8.2)
[2024-02-24] MEDS ORDERED: Sodium Zirconium Cyclosilicate 10 GM Packet PO SCH (10:45)
[2024-02-24] MEDS: Furosemide 40 MG/4 ML VIAL IVPUSH ONE (11:50)
[2024-02-24] MEDS: Sodium Chloride 0.9% 1,000 ML IV ONE (11:50)
[2024-02-24] MEDS: Rosuvastatin 20 MG Tab *PT OWN MED PO SCH (11:54)
[2024-02-24] MEDS: Omeprazole 20 MG Cap.CR PO SCH (11:54)
[2024-02-24] MEDS: Aspirin 81 MG Tab.EC PO SCH (11:54)
[2024-02-24 18:28] VITALS: BP 171/86
[2024-02-24 18:30] VITALS: PULSE 77
[2024-02-25] MEDS ORDERED: Enoxaparin 40 MG/0.4 ML Syringe SUBCUT SCH (09:00)
== END 2024-02-24 19:18 ==
LOC: KA.ED 12:20 → KA.MS 13:57 → UNDOADMOB 13:57
PROVIDERS: ADMIT Internal Medicine; ATTEND Internal Medicine
DX: R55 Syncope and collapse (principal); I25.10 Atherosclerotic heart disease of native coronary artery without angina pectoris; I48.91 Unspecified atrial fibrillation; I11.0 Hypertensive heart disease with heart failure; I50.9 Heart failure, unspecified; N40.0 Benign prostatic hyperplasia without lower urinary tract symptoms; Z79.899 Other long term (current) drug therapy; Z79.82 Long term (current) use of aspirin
CPT/HCPCS: 36415; 70450; 71045; 80053; 81001; 83735; 84484; 85025; 85610; 85730; 93005; 99285; A9270-GY; G0378; Q3014

== ENCOUNTER 2024-07-16 21:09 | Inpatient (IN) | payer MEDICARE, OTHER ==
[2024-07-16 22:05] LABS: BASOPHILS ABSOLUTE AUTO 0.04 10^3/uL (0.00-0.10); BASOPHILS PERCENT AUTO 0.5 % (0.0-1.0); EOSINOPHILS PERCENT AUTO 5.5 % (1.0-3.0); HEMATOCRIT 40.8 % (40.0-52.0); IMMATURE GRAN ABSOLUTE AUTO 0.02 10^3/uL (0.00-0.50); IMMATURE GRAN PERCENT AUTO 0.3 % (0.0-5.0); LYMPHOCYTES ABSOLUTE AUTO 1.45 10^3/uL (1.00-4.00); LYMPHOCYTES PERCENT AUTO 19.9 % (20.0-40.0); MEAN CORPUSCULAR HEMOGLOBIN 31.7 pg (27.0-31.0); MEAN CORPUSCULAR HGB CONC 34.3 g/dL (32.0-36.0); MEAN CORPUSCULAR VOLUME 92.5 fL (82.0-92.0); MONOCYTES ABSOLUTE AUTO 1.09 10^3/uL (0.10-0.80); MONOCYTES PERCENT AUTO 14.9 % (2.0-8.0); NEUTROPHILS PERCENT AUTO 58.9 % (50.0-70.0); PLATELET COUNT,PLT 209 10^3/uL (150-400); RED BLOOD CELL COUNT 4.41 10^6/uL (4.50-6.00); RED CELL DISTRIBUTION WIDTH 11.8 % (11.5-14.5)
[2024-07-16 22:23] LABS: ALANINE AMINOTRANSFERASE,ALT 18 U/L (14-63); ALBUMIN 2.92 g/dL (3.40-5.00); ALKALINE PHOSPHATASE 56 U/L (46-116); ASPARTATE AMNIOTRANSFERASE,AST 15 U/L (15-37); BILIRUBIN TOTAL 0.3 mg/dL (0.2-1.0); BLOOD UREA NITROGEN,BUN 25 mg/dL (7-18); CALCIUM 9.4 mg/dL (8.7-10.3); CHLORIDE,CL 93 mmol/L (98-107); CREATININE 0.74 mg/dL (0.51-1.17); GLUCOSE RANDOM 103 mg/dL (70-140); POTASSIUM,K 5.9 mmol/L (3.5-5.1)
[2024-07-16 22:30] LABS: ANION GAP 9.9 mmol/L (5-15); ESTIMATED GFR 90 mL/min (>=60); SODIUM,NA 126 mmol/L (136-145)
[2024-07-17] MEDS: Azithromycin 250 MG Tab PO ONE (00:19)
[2024-07-17] MEDS: cefTRIAXone 2 GM Vial IVPUSH ONE (00:20)
[2024-07-17] MEDS ORDERED: Albuterol 8 GM Inhaler INH PRN (01:41)
[2024-07-17] MEDS ORDERED: hydrALAZINE 20 MG/ML SDV IVPUSH PRN (01:45)
[2024-07-17] MEDS ORDERED: Sodium Chloride 0.9% 10 ML Syringe FLUSH PRN (05:42)
[2024-07-17] MEDS: Sodium Zirconium Cyclosilicate 10 GM Packet PO SCH (05:59)
[2024-07-17] MEDS: Insulin Regular, Human 100 Units/ML 10 ML Vial IVPUSH ONE (06:03)
[2024-07-17] MEDS: 50% Dextrose in Water 50 ML Syringe IV ONE (06:06)
[2024-07-17] MEDS: Calcium Gluconate 1 GM in Dextrose 5% in Water 100 ML IV ONE (06:06)
[2024-07-17] MEDS ORDERED: Ondansetron 4 MG/2 ML SDV IV PRN (07:07)
[2024-07-17] MEDS ORDERED: Melatonin 3 MG Tab PO PRN (07:07)
[2024-07-17 07:37] LABS: ANION GAP 11.2 mmol/L (5-15); CALCIUM 9.5 mg/dL (8.7-10.3); CARBON DIOXIDE,CO2 26.7 mmol/L (21.0-32.0); CREATININE 0.68 mg/dL (0.51-1.17); EST CRCL DRUG DOSING (CG) 89.2 mL/min; POTASSIUM,K 3.9 mmol/L (3.5-5.1)
[2024-07-17] MEDS: Calcium Citrate/Vitamin D3 315 MG-250 Unit Tab PO SCH (08:32)
[2024-07-17] MEDS: Omeprazole 20 MG Cap.CR PO SCH (08:32)
[2024-07-17] MEDS: Cholecalciferol (Vitamin D3) 25 MCG Tab PO SCH (08:33)
[2024-07-17] MEDS: Finasteride 5 MG Tab PO SCH (08:33)
[2024-07-17] MEDS: Apixaban 5 MG Tab PO SCH (08:33)
[2024-07-17] MEDS: Multivitamins with Minerals/Iron/Folic Acid/Lycopene Tab PO SCH (08:33)
[2024-07-17] MEDS: Carvedilol 6.25 MG Tab PO SCH (08:33)
[2024-07-17] MEDS: Montelukast 10 MG Tab PO SCH (08:33)
[2024-07-17] MEDS: Formoterol/Mometasone 200-5 MCG 8.8 GM Inhaler INH SCH (08:34)
[2024-07-17] MEDS: Fluticasone NASAL Spray 16 GM Bottle NASBOTH SCH (08:35)
[2024-07-17] MEDS: Polyethylene Glycol 3350 Powder 17 GM Packet PO SCH (08:38)
[2024-07-17] MEDS ORDERED: Losartan 50 MG Tab PO SCH (09:00)
[2024-07-17 09:04] LABS: APPEARANCE,URINE CLEAR (CLEAR); BILIRUBIN,URINE NEGATIVE (NEGATIVE); COLOR,URINE YELLOW (YELLOW); GLUCOSE,URINE 100 mg/dL (NEGATIVE); KETONES,URINE NEGATIVE (NEGATIVE); LEUKOCYTE ESTERASE,URINE NEGATIVE (NEGATIVE); NITRITE,URINE NEGATIVE (NEGATIVE); OCCULT BLOOD,URINE NEGATIVE (NEGATIVE); PH,URINE 6.5 (5.0-9.0); PROTEIN,URINE NEGATIVE (NEGATIVE); UROBILINOGEN,URINE 0.2 E.U./dL (0.2-1.0)
[2024-07-17 09:16] LABS: BACTERIA,URINE RARE /HPF (NONE TO FEW); EPITHELIAL CELLS,URINE RARE /LPF; RBC,URINE 0-5 /HPF (0-5); WBC,URINE 0-5 /HPF (0-5)
[2024-07-17] MEDS: Rosuvastatin 10 MG Tab PO SCH (11:52)
[2024-07-17] MEDS: Sodium Chloride 0.9% 1,000 ML IV SCH (11:52)
[2024-07-17] MEDS: Azithromycin 500 MG in Sodium Chloride 0.9% 250 ML IV SCH (20:20)
[2024-07-17] MEDS: cefTRIAXone 2 GM Vial IVPUSH SCH (20:20)
[2024-07-17] MEDS: Acetaminophen 325 MG Tab PO PRN (21:17)
[2024-07-17 22:06] LABS: URINE SODIUM 63 mEq/L
[2024-07-18 06:58] LABS: BASOPHILS ABSOLUTE AUTO 0.03 10^3/uL (0.00-0.10); BASOPHILS PERCENT AUTO 0.5 % (0.0-1.0); EOSINOPHILS ABSOLUTE AUTO 0.27 10^3/uL (0.10-0.30); EOSINOPHILS PERCENT AUTO 4.8 % (1.0-3.0); HEMATOCRIT 36.6 % (40.0-52.0); HEMOGLOBIN 12.6 g/dL (13.0-17.0); IMMATURE GRAN ABSOLUTE AUTO 0.02 10^3/uL (0.00-0.50); IMMATURE GRAN PERCENT AUTO 0.4 % (0.0-5.0); LYMPHOCYTES ABSOLUTE AUTO 1.21 10^3/uL (1.00-4.00); LYMPHOCYTES PERCENT AUTO 21.7 % (20.0-40.0); MEAN CORPUSCULAR HEMOGLOBIN 31.8 pg (27.0-31.0); MEAN CORPUSCULAR HGB CONC 34.4 g/dL (32.0-36.0); MEAN CORPUSCULAR VOLUME 92.4 fL (82.0-92.0); MONOCYTES ABSOLUTE AUTO 0.93 10^3/uL (0.10-0.80); MONOCYTES PERCENT AUTO 16.7 % (2.0-8.0); NEUTROPHILS ABSOLUTE AUTO 3.12 10^3/uL (2.50-7.00); NEUTROPHILS PERCENT AUTO 55.9 % (50.0-70.0); PLATELET COUNT,PLT 196 10^3/uL (150-400); RED BLOOD CELL COUNT 3.96 10^6/uL (4.50-6.00); RED CELL DISTRIBUTION WIDTH 12.1 % (11.5-14.5); WHITE BLOOD CELL COUNT,WBC 5.58 10^3/uL (5.00-10.00)
[2024-07-18 07:20] LABS: ANION GAP 11.9 mmol/L (5-15); CALCIUM 8.7 mg/dL (8.7-10.3); CARBON DIOXIDE,CO2 26.3 mmol/L (21.0-32.0); CREATININE 0.74 mg/dL (0.51-1.17); EST CRCL DRUG DOSING (CG) 81.97 mL/min; POTASSIUM,K 4.2 mmol/L (3.5-5.1)
[2024-07-18 11:23] VITALS: BP 159/75; PULSE 63
== END 2024-07-18 12:45 | disposition home or self-care (01) | DRG 640 ==
LOC: KA.ED 21:09 → KA.MS 23:15
PROVIDERS: ADMIT Internal Medicine; ATTEND Internal Medicine
DX: E87.1 Hypo-osmolality and hyponatremia (principal); R55 Syncope and collapse; J18.9 Pneumonia, unspecified organism; M54.9 Dorsalgia, unspecified; G89.29 Other chronic pain; H54.7 Unspecified visual loss; I25.10 Atherosclerotic heart disease of native coronary artery without angina pectoris; I50.9 Heart failure, unspecified; E78.00 Pure hypercholesterolemia, unspecified; I11.0 Hypertensive heart disease with heart failure; J45.909 Unspecified asthma, uncomplicated; K21.9 Gastro-esophageal reflux disease without esophagitis; N40.0 Benign prostatic hyperplasia without lower urinary tract symptoms; M19.90 Unspecified osteoarthritis, unspecified site; Z88.4 Allergy status to anesthetic agent; M81.0 Age-related osteoporosis without current pathological fracture; E87.5 Hyperkalemia; R42 Dizziness and giddiness; I48.91 Unspecified atrial fibrillation; E86.0 Dehydration; Z79.899 Other long term (current) drug therapy; Z88.2 Allergy status to sulfonamides; Z88.8 Allergy status to other drugs, medicaments and biological substances; Z88.6 Allergy status to analgesic agent; Z79.01 Long term (current) use of anticoagulants; Z79.51 Long term (current) use of inhaled steroids; Z95.1 Presence of aortocoronary bypass graft; I25.2 Old myocardial infarction; Z86.73 Personal history of transient ischemic attack (TIA), and cerebral infarction without residual deficits; Z98.890 Other specified postprocedural states
CPT/HCPCS: 36415; 70450; 71045; 71250; 80048; 80053; 81001; 82947; 83605; 83930; 83935; 84300; 85025; 87040; 93005; 93010; 97116-GP; 97161-GP; 99223-GT; 99233-GT; 99238-GT; 99284; 99285; A9270-GY; J0456; J0612; J0696; J3490; J7030; J7050; J7060; Q3014

== ENCOUNTER 2024-11-03 22:34 | Emergency (ER) | payer MEDICARE, OTHER ==
[2024-11-03] MEDS ORDERED: Sodium Chloride 0.9% 10 ML Syringe FLUSH PRN (23:01)
[2024-11-03 23:03] LABS: BASOPHILS ABSOLUTE AUTO 0.03 10^3/uL (0.00-0.10); BASOPHILS PERCENT AUTO 0.5 % (0.0-1.0); EOSINOPHILS ABSOLUTE AUTO 0.19 10^3/uL (0.10-0.30); HEMATOCRIT 43.1 % (40.0-52.0); IMMATURE GRAN ABSOLUTE AUTO 0.01 10^3/uL (0.00-0.04); IMMATURE GRAN PERCENT AUTO 0.2 % (0.0-0.4); LYMPHOCYTES ABSOLUTE AUTO 1.68 10^3/uL (1.00-4.00); LYMPHOCYTES PERCENT AUTO 26.4 % (20.0-40.0); MEAN CORPUSCULAR HEMOGLOBIN 32.8 pg (27.0-31.0); MEAN CORPUSCULAR HGB CONC 34.8 g/dL (32.0-36.0); MEAN CORPUSCULAR VOLUME 94.3 fL (82.0-92.0); MEAN PLATELET VOLUME 8.5 fL (7.4-10.4); MONOCYTES ABSOLUTE AUTO 1.07 10^3/uL (0.10-0.80); MONOCYTES PERCENT AUTO 16.8 % (2.0-8.0); NEUTROPHILS ABSOLUTE AUTO 3.38 10^3/uL (2.50-7.00); NEUTROPHILS PERCENT AUTO 53.1 % (50.0-70.0); PLATELET COUNT,PLT 167 10^3/uL (150-400); RED BLOOD CELL COUNT 4.57 10^6/uL (4.50-6.00); WHITE BLOOD CELL COUNT,WBC 6.36 10^3/uL (5.00-10.00)
[2024-11-03 23:19] LABS: ALBUMIN 3.37 g/dL (3.40-5.00); ANION GAP 8.1 mmol/L (5-15); BILIRUBIN TOTAL 0.4 mg/dL (0.2-1.0); CALCIUM 8.7 mg/dL (8.7-10.3); CARBON DIOXIDE,CO2 30.5 mmol/L (21.0-32.0); CREATININE 0.87 mg/dL (0.51-1.17); EST CRCL DRUG DOSING (CG) 65.46 mL/min; POTASSIUM,K 4.6 mmol/L (3.5-5.1); PROTEIN TOTAL,TP 6.8 g/dL (6.4-8.2)
[2024-11-03] MEDS: LORazepam 2 MG/ML SDV IVPUSH ONE (23:24)
[2024-11-04] MEDS: Enalaprilat 1.25 MG/ML SDV IVPUSH ONE
[2024-11-04] MEDS: Enalaprilat 1.25 MG/ML SDV ONE (00:03)
[2024-11-04 00:20] VITALS: BP 162/88; PULSE 60
== END 2024-11-04 00:19 | disposition home or self-care (01) ==
LOC: KA.ED 22:34
DX: I11.0 Hypertensive heart disease with heart failure (principal); I50.9 Heart failure, unspecified; I25.810 Atherosclerosis of coronary artery bypass graft(s) without angina pectoris; J45.909 Unspecified asthma, uncomplicated; K21.9 Gastro-esophageal reflux disease without esophagitis; Z88.2 Allergy status to sulfonamides; Z88.8 Allergy status to other drugs, medicaments and biological substances; Z79.899 Other long term (current) drug therapy; Z87.891 Personal history of nicotine dependence
CPT/HCPCS: 71045; 80053; 83880; 84484; 85025; 93010; 96374; 96375; 99284; 99284-25; J2060; J3490

== ENCOUNTER 2025-01-13 18:00 | Inpatient (IN) | payer MEDICARE, OTHER ==
[2025-01-13] MEDS: Sodium Chloride 0.9% 10 ML Syringe FLUSH PRN (18:12)
[2025-01-13 18:23] LABS: BASOPHILS ABSOLUTE AUTO 0.05 10^3/uL (0.00-0.10); BASOPHILS PERCENT AUTO 0.9 % (0.0-1.0); EOSINOPHILS ABSOLUTE AUTO 0.34 10^3/uL (0.10-0.30); EOSINOPHILS PERCENT AUTO 6.3 % (1.0-3.0); HEMATOCRIT 42.7 % (40.0-52.0); HEMOGLOBIN 14.6 g/dL (13.0-17.0); IMMATURE GRAN ABSOLUTE AUTO 0.01 10^3/uL (0.00-0.04); IMMATURE GRAN PERCENT AUTO 0.2 % (0.0-0.4); LYMPHOCYTES ABSOLUTE AUTO 1.74 10^3/uL (1.00-4.00); MEAN CORPUSCULAR HGB CONC 34.2 g/dL (32.0-36.0); MEAN CORPUSCULAR VOLUME 96.4 fL (82.0-92.0); MEAN PLATELET VOLUME 8.7 fL (7.4-10.4); MONOCYTES ABSOLUTE AUTO 0.95 10^3/uL (0.10-0.80); MONOCYTES PERCENT AUTO 17.5 % (2.0-8.0); NEUTROPHILS ABSOLUTE AUTO 2.34 10^3/uL (2.50-7.00); NEUTROPHILS PERCENT AUTO 43.1 % (50.0-70.0); PLATELET COUNT,PLT 153 10^3/uL (150-400); RED BLOOD CELL COUNT 4.43 10^6/uL (4.50-6.00); RED CELL DISTRIBUTION WIDTH 12.1 % (11.5-14.5); WHITE BLOOD CELL COUNT,WBC 5.43 10^3/uL (5.00-10.00)
[2025-01-13] MEDS: Labetalol 100 MG/20 ML MDV IVPUSH ONE ×2 (18:30→18:44)
[2025-01-13 18:43] LABS: ALBUMIN 3.27 g/dL (3.40-5.00); ANION GAP 10.5 mmol/L (5-15); BILIRUBIN TOTAL 0.3 mg/dL (0.2-1.0); CALCIUM 9.2 mg/dL (8.7-10.3); CARBON DIOXIDE,CO2 29.2 mmol/L (21.0-32.0); CREATININE 0.9 mg/dL (0.51-1.17); EST CRCL DRUG DOSING (CG) 67.4 mL/min; POTASSIUM,K 4.7 mmol/L (3.5-5.1); PROTEIN TOTAL,TP 6.6 g/dL (6.4-8.2)
[2025-01-13 18:52] LABS: PROTHROMBIN TIME 10.4 SEC (9.1-12.0); PTT,PARTIAL THROMBOPLSTIN TIME 27.6 SEC (21.6-32.4)
[2025-01-13] MEDS: Sodium Chloride 0.9% 500 ML IV SCH (19:35)
[2025-01-13] MEDS ORDERED: Magnesium Hydroxide 400 MG/5 ML Susp 30 ML Cup PO PRN (20:45)
[2025-01-13] MEDS ORDERED: Temazepam 15 MG Cap PO PRN (20:45)
[2025-01-13] MEDS ORDERED: hydrALAZINE 10 MG Tab PO PRN (20:51)
[2025-01-13] MEDS: Carvedilol 6.25 MG Tab PO SCH (21:18)
[2025-01-13] MEDS: Apixaban 5 MG Tab PO SCH (21:18)
[2025-01-13] MEDS: Tamsulosin 0.4 MG Cap.ER PO SCH (21:18)
[2025-01-14] MEDS: Sodium Chloride 0.9% 500 ML ONE (04:53)
[2025-01-14 07:51] LABS: ANION GAP 9.9 mmol/L (5-15); CALCIUM 8.9 mg/dL (8.7-10.3); CARBON DIOXIDE,CO2 29.5 mmol/L (21.0-32.0); CREATININE 0.8 mg/dL (0.51-1.17); EST CRCL DRUG DOSING (CG) 75.82 mL/min; POTASSIUM,K 4.4 mmol/L (3.5-5.1)
[2025-01-14] MEDS: Finasteride 5 MG Tab PO SCH (08:09)
[2025-01-14] MEDS: Losartan 50 MG Tab PO SCH (10:23)
[2025-01-14] MEDS: amLODIPine 5 MG Tab PO SCH (10:24)
[2025-01-15 13:01] VITALS: BP 141/68; PULSE 73
== END 2025-01-15 12:39 | disposition home or self-care (01) | DRG 69 ==
LOC: KA.ED 18:00 → KA.MS 19:19
PROVIDERS: ADMIT Family Medicine; ATTEND Internal Medicine
DX: G45.9 Transient cerebral ischemic attack, unspecified (principal); E87.1 Hypo-osmolality and hyponatremia; R47.01 Aphasia; I16.0 Hypertensive urgency; N40.0 Benign prostatic hyperplasia without lower urinary tract symptoms; R47.81 Slurred speech; H54.7 Unspecified visual loss; I11.0 Hypertensive heart disease with heart failure; I25.10 Atherosclerotic heart disease of native coronary artery without angina pectoris; I50.9 Heart failure, unspecified; Z88.4 Allergy status to anesthetic agent; E78.00 Pure hypercholesterolemia, unspecified; J45.909 Unspecified asthma, uncomplicated; G47.00 Insomnia, unspecified; K21.9 Gastro-esophageal reflux disease without esophagitis; M19.90 Unspecified osteoarthritis, unspecified site; I48.0 Paroxysmal atrial fibrillation; M81.0 Age-related osteoporosis without current pathological fracture; Z98.890 Other specified postprocedural states; Z88.2 Allergy status to sulfonamides; Z95.1 Presence of aortocoronary bypass graft; Z88.8 Allergy status to other drugs, medicaments and biological substances; Z79.899 Other long term (current) drug therapy; Z79.51 Long term (current) use of inhaled steroids; Z79.02 Long term (current) use of antithrombotics/antiplatelets; Z79.1 Long term (current) use of non-steroidal anti-inflammatories (NSAID); I25.2 Old myocardial infarction; Z79.01 Long term (current) use of anticoagulants; Z87.01 Personal history of pneumonia (recurrent)
CPT/HCPCS: 36415; 70450; 71045; 80048; 80053; 82947; 84484; 85025; 85610; 85730; 93010; 96374; 99223-GT; 99233-GT; 99239-GT; 99284; 99285-25; A9270-GY; J1920; J7040; Q3014

== ENCOUNTER 2025-02-17 07:02 | Emergency (ER) | payer MEDICARE, OTHER ==
[2025-02-17] MEDS: Aspirin 81 MG Tab.Chew PO ONE (07:22)
[2025-02-17] MEDS: Aspirin 81 MG Tab.Chew ONE (07:22)
[2025-02-17 07:35] LABS: BASOPHILS ABSOLUTE AUTO 0.05 10^3/uL (0.00-0.10); BASOPHILS PERCENT AUTO 0.8 % (0.0-1.0); EOSINOPHILS ABSOLUTE AUTO 0.59 10^3/uL (0.10-0.30); EOSINOPHILS PERCENT AUTO 9.8 % (1.0-3.0); HEMATOCRIT 39.8 % (40.0-52.0); HEMOGLOBIN 13.8 g/dL (13.0-17.0); IMMATURE GRAN ABSOLUTE AUTO 0.01 10^3/uL (0.00-0.04); IMMATURE GRAN PERCENT AUTO 0.2 % (0.0-0.4); LYMPHOCYTES ABSOLUTE AUTO 1.62 10^3/uL (1.00-4.00); MEAN CORPUSCULAR HEMOGLOBIN 32.7 pg (27.0-31.0); MEAN CORPUSCULAR HGB CONC 34.7 g/dL (32.0-36.0); MEAN CORPUSCULAR VOLUME 94.3 fL (82.0-92.0); MEAN PLATELET VOLUME 8.8 fL (7.4-10.4); MONOCYTES ABSOLUTE AUTO 1.03 10^3/uL (0.10-0.80); MONOCYTES PERCENT AUTO 17.1 % (2.0-8.0); NEUTROPHILS ABSOLUTE AUTO 2.71 10^3/uL (2.50-7.00); NEUTROPHILS PERCENT AUTO 45.1 % (50.0-70.0); PLATELET COUNT,PLT 166 10^3/uL (150-400); RED BLOOD CELL COUNT 4.22 10^6/uL (4.50-6.00); RED CELL DISTRIBUTION WIDTH 12.4 % (11.5-14.5); WHITE BLOOD CELL COUNT,WBC 6.01 10^3/uL (5.00-10.00)
[2025-02-17 07:45] LABS: ALBUMIN 3.54 g/dL (3.40-5.00); BILIRUBIN TOTAL 0.5 mg/dL (0.2-1.0); CALCIUM 9.4 mg/dL (8.7-10.3); CARBON DIOXIDE,CO2 28.3 mmol/L (21.0-32.0); CREATININE 0.82 mg/dL (0.51-1.17); EST CRCL DRUG DOSING (CG) 76.23 mL/min; POTASSIUM,K 4.3 mmol/L (3.5-5.1); PROTEIN TOTAL,TP 6.9 g/dL (6.4-8.2)
[2025-02-17] MEDS: Losartan 50 MG Tab PO ONE (08:07)
[2025-02-17 09:47] VITALS: BP 159/80; PULSE 92
== END 2025-02-17 09:56 | disposition home or self-care (01) ==
LOC: KA.ED 07:02
DX: R07.9 Chest pain, unspecified (principal); I11.0 Hypertensive heart disease with heart failure; I50.9 Heart failure, unspecified; I25.10 Atherosclerotic heart disease of native coronary artery without angina pectoris; I25.2 Old myocardial infarction; I48.91 Unspecified atrial fibrillation; E78.00 Pure hypercholesterolemia, unspecified; K21.9 Gastro-esophageal reflux disease without esophagitis; Z95.1 Presence of aortocoronary bypass graft; Z79.51 Long term (current) use of inhaled steroids; Z79.899 Other long term (current) drug therapy; Z79.01 Long term (current) use of anticoagulants; Z88.2 Allergy status to sulfonamides; Z88.4 Allergy status to anesthetic agent; Z88.8 Allergy status to other drugs, medicaments and biological substances
CPT/HCPCS: 36415; 71045; 80053; 84484; 85025; 99285; A9270-GY

== ENCOUNTER 2025-07-19 12:36 | Emergency (ER) | payer MEDICARE, OTHER ==
[2025-07-19 12:57] LABS: BASOPHILS ABSOLUTE AUTO 0.04 10^3/uL (0.00-0.10); BASOPHILS PERCENT AUTO 0.6 % (0.0-1.0); EOSINOPHILS ABSOLUTE AUTO 0.37 10^3/uL (0.10-0.30); EOSINOPHILS PERCENT AUTO 5.4 % (1.0-3.0); IMMATURE GRAN ABSOLUTE AUTO 0.02 10^3/uL (0.00-0.04); IMMATURE GRAN PERCENT AUTO 0.3 % (0.0-0.4); LYMPHOCYTES ABSOLUTE AUTO 1.28 10^3/uL (1.00-4.00); LYMPHOCYTES PERCENT AUTO 18.7 % (20.0-40.0); MEAN PLATELET VOLUME 8.5 fL (7.4-10.4); MONOCYTES ABSOLUTE AUTO 1.02 10^3/uL (0.10-0.80); MONOCYTES PERCENT AUTO 14.9 % (2.0-8.0); NEUTROPHILS ABSOLUTE AUTO 4.11 10^3/uL (2.50-7.00); NEUTROPHILS PERCENT AUTO 60.1 % (50.0-70.0); PLATELET COUNT,PLT 175 10^3/uL (150-400); RED BLOOD CELL COUNT 4.04 10^6/uL (4.50-6.00); RED CELL DISTRIBUTION WIDTH 12.4 % (11.5-14.5); WHITE BLOOD CELL COUNT,WBC 6.84 10^3/uL (5.00-10.00)
[2025-07-19 13:14] LABS: ALANINE AMINOTRANSFERASE,ALT 17 U/L (14-63); ASPARTATE AMNIOTRANSFERASE,AST 21 U/L (15-37); BILIRUBIN TOTAL 0.3 mg/dL (0.2-1.0); BLOOD UREA NITROGEN,BUN 17 mg/dL (7-18); CARBON DIOXIDE,CO2 27.8 mmol/L (21.0-32.0); CHLORIDE,CL 94 mmol/L (98-107); CREATININE 0.82 mg/dL (0.51-1.17); GLUCOSE RANDOM 125 mg/dL (70-140); POTASSIUM,K 4.5 mmol/L (3.5-5.1); PROTEIN TOTAL,TP 6.3 g/dL (6.4-8.2); SODIUM,NA 129 mmol/L (136-145)
[2025-07-19 13:15] LABS: ESTIMATED GFR 87 mL/min (>=60)
[2025-07-19 13:36] VITALS: BP 150/80; PULSE 61
== END 2025-07-19 13:55 | disposition home or self-care (01) ==
LOC: KA.ED 12:36
DX: T67.1XXA Heat syncope, initial encounter (principal); I11.0 Hypertensive heart disease with heart failure; I50.9 Heart failure, unspecified; I25.2 Old myocardial infarction; I48.91 Unspecified atrial fibrillation; J45.909 Unspecified asthma, uncomplicated; Z86.73 Personal history of transient ischemic attack (TIA), and cerebral infarction without residual deficits; E78.00 Pure hypercholesterolemia, unspecified; Z79.01 Long term (current) use of anticoagulants; Z88.2 Allergy status to sulfonamides; Z88.3 Allergy status to other anti-infective agents; Z88.8 Allergy status to other drugs, medicaments and biological substances; W01.198A Fall on same level from slipping, tripping and stumbling with subsequent striking against other object, initial encounter
CPT/HCPCS: 70450; 80053; 84484; 85025; 93010; 99284; J7030